=== PATIENT | male | born 1950 | race Caucasian/White ===

== ENCOUNTER → 2018-01-09 07:55 | Outpatient (CLI) | payer MEDICARE, OTHER, SELFPAY ==
[2018-01-09 08:55] LABS: Hemoglobin A1C% w Est Avg Glu 6.2 % (4.0-6.0)
[2018-01-09 09:08] LABS: Alanine Aminotransferase 37 IU/L (21-72); Albumin 3.8 g/dL (3.5-5.0); Albumin Globulin Ratio 1.5 (1.0-2.8); Alkaline Phosphatase 57 U/L (38-126); Aspartate Aminotransferase 23 IU/L (17-59); Bilirubin Total 0.4 mg/dL (0.2-1.3); Blood Urea Nitrogen 45 mg/dL (9-20); Calcium 9.6 mg/dL (8.4-10.2); Carbon Dioxide 26 mmol/L (22-32); Chloride 109 mmol/L (98-107); Cholesterol 125 mg/dL (140-199); Estimated Glomerular Filt Rate 46.8 mL/min (>60); Globulin 2.6 g/dL (1.7-4.1); Glucose 96 mg/dL (80-110); HDL Cholesterol 49 mg/dL (40-60); HEMOLYSIS < 15 (0-50); LDL Cholesterol Calculated 60 mg/dL (<100); Sodium 145 mmol/L (137-145); Total Protein 6.4 g/dL (6.3-8.2); Triglycerides 82 mg/dL (35-150)
[2018-01-09 09:10] LABS: Potassium 5.6 mmol/L (3.4-5.1)
== END ==
PROVIDERS: Visit Provider Family Medicine
DX: E11.59 Type 2 diabetes mellitus with other circulatory complications (principal); I10 Essential (primary) hypertension; Z79.4 Long term (current) use of insulin
CPT/HCPCS: 36415; 80053; 80061; 83036

== ENCOUNTER → 2018-01-29 07:38 | Outpatient (CLI) | payer MEDICARE, OTHER, SELFPAY ==
[2018-01-29 08:51] LABS: BUN Creatinine Ratio 24.1 (6-22); Blood Urea Nitrogen 41 mg/dL (9-20); Calcium 9.2 mg/dL (8.4-10.2); Carbon Dioxide 25 mmol/L (22-32); Chloride 110 mmol/L (98-107); Estimated Glomerular Filt Rate 40.5 mL/min (>60); Glucose 111 mg/dL (80-110); HEMOLYSIS < 15 (0-50); Potassium 4.7 mmol/L (3.4-5.1); Sodium 145 mmol/L (137-145)
[2018-01-29 09:11] LABS: Microalbumi Creatinin Ratio Ur 241.1 ug/mg CR (<30); Microalbumin Urine Random 25.8 mg/dL (0-1.6)
== END ==
PROVIDERS: PCP Family Medicine; Visit Provider Family Medicine
DX: E11.59 Type 2 diabetes mellitus with other circulatory complications (principal); Z79.4 Long term (current) use of insulin
CPT/HCPCS: 80048; 82043; 82570

== ENCOUNTER → 2018-03-27 07:21 | Outpatient (CLI) | payer MEDICARE, OTHER, SELFPAY ==
[2018-03-27 08:23] LABS: Hematocrit 36.5 % (41-53); Hemoglobin 12.1 g/dL (13.5-17.5); Mean Corpuscular HGB Conc 33.2 % (30-36); Mean Corpuscular Hemoglobin 30.5 PG (26-34); Mean Corpuscular Volume 91.8 fL (80-100); Platelet Count 174 X10^3/uL (150-400); Red Blood Cell Count 3.98 X10^6/uL (4.5-5.9); White Blood Cell Count 6.8 X10^3/uL (4.5-11.0)
== END ==
PROVIDERS: PCP Family Medicine; Visit Provider Student in an Organized Health Care Education/Training Program
DX: D70.9 Neutropenia, unspecified (principal); D63.1 Anemia in chronic kidney disease
CPT/HCPCS: 36415; 85027

== ENCOUNTER → 2018-04-19 10:32 | Outpatient (CLI) | payer MEDICARE, OTHER, SELFPAY ==
--- NOTE | 2018-04-19 | DI.US.S_ITS ---
PROCEDURE: US RENAL COMPLETE INDICATIONS: CHRONIC KIDNEY DISEASE TECHNIQUE: Real-time scanning was performed of the kidneys and bladder, with image documentation. COMPARISON: [facility], CT, ABDOMEN/PELVIS WITH CONTRAST, 03/18/2017, 9:10. FINDINGS: Kidneys: Kidneys are normal in size. Right kidney measures 13.5 cm long; left kidney measures 13.6 cm long. Right renal cortical thickness is 0.8 cm; left renal cortical thickness is 1.1 cm. Renal cortical echotexture is normal. No hydronephrosis or shadowing nephrolithiasis. No suspicious solid mass lesions. A simple appearing cyst measuring 10 mm is evident involving the mid right kidney. Along the superior to mid aspect of the left kidney, there is an exophytic hypoechoic structure identified that does not demonstrate increased vascularity that measures 2.3 x 2.8 x 2.9 cm. This was not evident on the previous CT from 03/18/17. Bladder: Pre-void bladder volume is 121 mL. Post-void residual is 64 mL. Pre-void images demonstrate no intraluminal masses or stones. Miscellaneous: No free pelvic fluid. IMPRESSION: 1. Mild bilateral cortical thinning. No hydronephrosis. 2. Hypoechoic structure along the lateral margin of the mid to superior left kidney is not adequately characterized and may represent perirenal fat. However, a dedicated CT urogram is recommended. Dictated by: Tang Pa M.D. on 04/19/2018 at 11:59 Approved by: Tang Pa M.D. on 04/19/2018 at 12:02
== END ==
PROVIDERS: PCP Family Medicine; Visit Provider Student in an Organized Health Care Education/Training Program
DX: N18.9 Chronic kidney disease, unspecified (principal); N28.1 Cyst of kidney, acquired
CPT/HCPCS: 76770

== ENCOUNTER → 2018-05-06 08:33 | Outpatient (CLI) | payer MEDICARE, OTHER, SELFPAY ==
[2018-05-06 08:49] LABS: Bacteria Urine None Seen; WBC Urine None Seen (0-5/HPF)
[2018-05-06 10:41] LABS: BUN Creatinine Ratio 27.7 (6-22); Blood Urea Nitrogen 36 mg/dL (9-20); Calcium 8.8 mg/dL (8.4-10.2); Carbon Dioxide 24 mmol/L (22-32); Chloride 106 mmol/L (98-107); Estimated Glomerular Filt Rate 55.2 mL/min (>60); Glucose 90 mg/dL (80-110); HEMOLYSIS < 15 (0-50); Phosphorous 3.7 mg/dL (2.3-3.7); Potassium 4.9 mmol/L (3.4-5.1); Sodium 138 mmol/L (137-145)
[2018-05-06 10:48] LABS: Appearance Urine UA CLEAR; Bilirubin Urine UA NEGATIVE (NEGATIVE); Color Urine UA YELLOW; Glucose Urine UA NEGATIVE (Negative); Ketones Urine UA NEGATIVE (NEGATIVE); Leukocyte Esterase Urine UA NEGATIVE (NEGATIVE); Nitrite Urine UA NEGATIVE (Negative); Occult Blood Urine UA 1+ (Negative); Protein Urine UA 1+ (Negative); Urobilinogen Urine UA 0.2 E.U./dL (0.2)
[2018-05-06 10:55] LABS: HEMOLYSIS < 15 (0-50); Iron 94 ug/dL (49-181)
[2018-05-06 11:01] LABS: Creatinine Urine Random 74.1 mg/dL; Protein (Total) Urine Random 67 mg/dL (0-12)
[2018-05-06 11:03] LABS: RBC Urine 1-5/HPF (0-5/HPF)
[2018-05-06 11:06] LABS: Percent Iron Saturation 35 % (20-50); Total Iron Binding Capacity 271 ug/dL (261-462); Transferrin 202 mg/dL (206-381)
[2018-05-06 11:13] LABS: Ferritin 96.3 ng/mL (17.9-464)
[2018-05-13 17:27] LABS: Parathyroid Hormone Int 80 pg/mL (14-64)
== END ==
PROVIDERS: PCP Family Medicine; Visit Provider Student in an Organized Health Care Education/Training Program
DX: N05.9 Unspecified nephritic syndrome with unspecified morphologic changes (principal); D50.0 Iron deficiency anemia secondary to blood loss (chronic); E83.30 Disorder of phosphorus metabolism, unspecified; N25.81 Secondary hyperparathyroidism of renal origin; B34.9 Viral infection, unspecified; R80.9 Proteinuria, unspecified; N30.00 Acute cystitis without hematuria
CPT/HCPCS: 36415; 80048; 81001; 82570; 82728; 83540; 83550; 83970; 84100; 84156; 87086

== ENCOUNTER → 2018-06-21 15:10 | Outpatient (CLI) | payer MEDICARE, OTHER, SELFPAY ==
[2018-06-21 16:17] LABS: BUN Creatinine Ratio 17.6 (6-22); Blood Urea Nitrogen 30 mg/dL (9-20); Calcium 8.3 mg/dL (8.4-10.2); Carbon Dioxide 23 mmol/L (22-32); Chloride 99 mmol/L (98-107); Estimated Glomerular Filt Rate 40.5 mL/min (>60); Glucose 196 mg/dL (80-110); HEMOLYSIS < 15 (0-50); Potassium 4.6 mmol/L (3.4-5.1); Sodium 135 mmol/L (137-145)
[2018-06-21 16:35] LABS: Creatinine Urine Random 212.4 mg/dL
[2018-06-21 16:38] LABS: Protein (Total) Urine Random 305 mg/dL (0-12); Protein Creatinine Ratio Urine 1.43 GRAM/24H
== END ==
PROVIDERS: PCP Family Medicine; Visit Provider Student in an Organized Health Care Education/Training Program
DX: N05.9 Unspecified nephritic syndrome with unspecified morphologic changes (principal); R80.9 Proteinuria, unspecified
CPT/HCPCS: 36415; 80048; 82570; 84156

== ENCOUNTER → 2018-08-08 10:02 | Outpatient (CLI) | payer MEDICARE, OTHER, SELFPAY ==
[2018-08-08 12:03] LABS: BUN Creatinine Ratio 29.4 (6-22); Blood Urea Nitrogen 47 mg/dL (9-20); Calcium 8.9 mg/dL (8.4-10.2); Carbon Dioxide 23 mmol/L (22-32); Chloride 107 mmol/L (98-107); Estimated Glomerular Filt Rate 43.5 mL/min (>60); Glucose 89 mg/dL (80-110); HEMOLYSIS < 15 (0-50); Sodium 139 mmol/L (137-145)
[2018-08-08 12:08] LABS: Potassium 5.4 mmol/L (3.4-5.1)
[2018-08-08 16:28] LABS: Creatinine Urine Random 89.3 mg/dL; Protein (Total) Urine Random 53 mg/dL (0-12); Protein Creatinine Ratio Urine 0.59 GRAM/24H
[2018-08-10 15:14] LABS: Parathyroid Hormone Int 67 pg/mL (14-64)
== END ==
PROVIDERS: PCP Family Medicine; Visit Provider Student in an Organized Health Care Education/Training Program
DX: N05.9 Unspecified nephritic syndrome with unspecified morphologic changes (principal); N25.81 Secondary hyperparathyroidism of renal origin; R80.9 Proteinuria, unspecified
CPT/HCPCS: 36415; 80048; 82570; 83970; 84156

== ENCOUNTER → 2018-08-20 10:33 | Outpatient (CLI) | payer MEDICARE, OTHER, SELFPAY ==
[2018-08-20 11:25] LABS: HEMOLYSIS < 15 (0-50)
[2018-08-20 11:32] LABS: Potassium 5.6 mmol/L (3.4-5.1)
== END ==
PROVIDERS: Family Provider Family Medicine; PCP Family Medicine; Visit Provider Student in an Organized Health Care Education/Training Program
DX: E87.5 Hyperkalemia (principal)
CPT/HCPCS: 36415; 84132

== ENCOUNTER → 2018-08-27 17:08 | Outpatient (CLI) | payer MEDICARE, OTHER, SELFPAY ==
[2018-08-27 19:03] LABS: HEMOLYSIS < 15 (0-50); Potassium 5.2 mmol/L (3.4-5.1)
== END ==
PROVIDERS: Family Provider Family Medicine; PCP Family Medicine; Visit Provider Student in an Organized Health Care Education/Training Program
DX: E87.5 Hyperkalemia (principal)
CPT/HCPCS: 36415; 84132

== ENCOUNTER → 2018-10-11 09:17 | Outpatient (CLI) | payer MEDICARE, OTHER, SELFPAY ==
[2018-10-11 10:19] LABS: Add Manual Diff / Slide Review NO; Basophils Absolute Auto 100 /uL (0-100); Basophils Percent Auto 1.2 % (0-2); Eosinophils Absolute Auto 200 /uL (0-450); Eosinophils Percent Auto 3.4 % (2-4); Hematocrit 36.8 % (41-53); Hemoglobin 12.3 g/dL (13.5-17.5); Lymphocytes Absolute Auto 1400 /uL (1100-4500); Lymphocytes Percent Auto 19.4 % (25-40); Mean Corpuscular HGB Conc 33.3 % (30-36); Mean Corpuscular Hemoglobin 30.6 PG (26-34); Mean Corpuscular Volume 91.6 fL (80-100); Monocytes Absolute Auto 600 /uL (0-900); Monocytes Percent Auto 8.6 % (3-14); Neutrophils Absolute Auto 4800 /uL (1500-7000); Neutrophils Percent Auto 67.4 % (50-75); Platelet Count 186 X10^3/uL (150-400); Red Blood Cell Count 4.02 X10^6/uL (4.5-5.9); Red Cell Distribution Width 13.4 % (11.6-14.8); White Blood Cell Count 7.1 X10^3/uL (4.5-11.0)
[2018-10-11 10:48] LABS: Albumin 3.6 g/dL (3.5-5.0); BUN Creatinine Ratio 28.8 (6-22); Blood Urea Nitrogen 46 mg/dL (9-20); Calcium 9.2 mg/dL (8.4-10.2); Carbon Dioxide 26 mmol/L (22-32); Chloride 102 mmol/L (98-107); Estimated Glomerular Filt Rate 43.5 mL/min (>60); Glucose 154 mg/dL (80-110); HEMOLYSIS 20 (0-50); Phosphorous 4.8 mg/dL (2.3-3.7); Potassium 5.2 mmol/L (3.4-5.1); Sodium 136 mmol/L (137-145)
[2018-10-11 11:37] LABS: Creatinine Urine Random 117.9 mg/dL; Protein (Total) Urine Random 156 mg/dL (0-12)
== END ==
PROVIDERS: Family Provider Family Medicine; PCP Family Medicine; Visit Provider Student in an Organized Health Care Education/Training Program
DX: N18.3 Chronic kidney disease, stage 3 (moderate) (principal); D63.1 Anemia in chronic kidney disease; R80.9 Proteinuria, unspecified
CPT/HCPCS: 36415; 80069; 82570; 84156; 85025

== ENCOUNTER → 2018-11-12 13:20 | Outpatient (CLI) | payer MEDICARE, OTHER, SELFPAY ==
[2018-11-12 14:29] LABS: BUN Creatinine Ratio 21.1 (6-22); Blood Urea Nitrogen 40 mg/dL (9-20); Calcium 9.1 mg/dL (8.4-10.2); Carbon Dioxide 28 mmol/L (22-32); Chloride 99 mmol/L (98-107); Estimated Glomerular Filt Rate 35.5 mL/min (>60); Glucose 91 mg/dL (80-110); HEMOLYSIS < 15 (0-50); Potassium 4.6 mmol/L (3.4-5.1); Sodium 137 mmol/L (137-145)
[2018-11-12 15:01] LABS: Creatinine Urine Random 100.9 mg/dL; Protein (Total) Urine Random 122 mg/dL (0-12)
== END ==
PROVIDERS: Family Provider Family Medicine; PCP Family Medicine; Visit Provider Student in an Organized Health Care Education/Training Program
DX: N05.9 Unspecified nephritic syndrome with unspecified morphologic changes (principal); R80.9 Proteinuria, unspecified
CPT/HCPCS: 36415; 80048; 82570; 84156

== ENCOUNTER → 2019-01-24 09:25 | Outpatient (CLI) | payer MEDICARE, OTHER, SELFPAY ==
[2019-01-24 10:31] LABS: BUN Creatinine Ratio 23.2 (6-22); Blood Urea Nitrogen 44 mg/dL (9-20); Calcium 8.9 mg/dL (8.4-10.2); Carbon Dioxide 29 mmol/L (22-32); Chloride 102 mmol/L (98-107); Estimated Glomerular Filt Rate 35.5 mL/min (>60); Glucose 141 mg/dL (80-110); HEMOLYSIS < 15 (0-50); Potassium 4.5 mmol/L (3.4-5.1); Sodium 137 mmol/L (137-145)
[2019-01-24 12:08] LABS: Creatinine Urine Random 122.2 mg/dL
[2019-01-24 12:17] LABS: Protein (Total) Urine Random 342 mg/dL (0-12); Protein Creatinine Ratio Urine 2.79 GRAM/24H
[2019-01-29 07:38] LABS: Parathyroid Hormone Int 42 pg/mL (14-64)
== END ==
PROVIDERS: Family Provider Family Medicine; PCP Family Medicine; Visit Provider Student in an Organized Health Care Education/Training Program
DX: N05.9 Unspecified nephritic syndrome with unspecified morphologic changes (principal); N25.81 Secondary hyperparathyroidism of renal origin; R80.9 Proteinuria, unspecified
CPT/HCPCS: 36415; 80048; 82570; 83970; 84156

== ENCOUNTER 2019-03-17 12:25 | Emergency (ER) | payer MEDICARE, OTHER, SELFPAY ==
[2019-03-17 12:40] VITALS: BP 140/82; PULSE 84; RESP 13; TEMP 36.4; O2SAT 99
[2019-03-17 16:46] VITALS: BP 153/77; PULSE 81; RESP 19; O2SAT 99
--- NOTE | 2019-03-17 16:55 | ED_ITS ---
HPI - General Adult General Chief complaint: Diabetic Problem Stated complaint: Sick all week hands and feet going dumb, Diabetic Time Seen by Provider: 03/17/19 16:55 Source: patient Mode of arrival: Ambulatory Limitations: no limitations History of Present Illness HPI narrative: This a 68-year-old male comes emergency department with complaint of abdominal pain that started on Sunday patient states he has also had vomiting since Sunday. He states he has had 2 episodes yesterday. He states he has not been eating any food. Patient states that the last couple episodes have just been clear liquids. Patient has not had a bowel movement since Sunday. Patient states that he has been passing gas regularly. He denies any back or flank pain. patient has not had any fevers. No chills. Denies any chest pain or shortness of breath. Related Data Home Medications Medication Instructions Recorded Confirmed aspirin #0 12/19/16 01/21/18 multivitamin [Multiple Vitamins] 1 tab PO QDAY #0 01/22/17 01/21/18 Previous Rx's Medication Instructions Recorded lisinopril 10 mg tablet 20 mg PO QDAY #180 tab 01/01/18 insulin glargine 100 unit/mL (3 45 unit SUBCUT QPM #10 ml 03/27/18 mL) subcutaneous pen atorvastatin 40 mg tablet 40 mg PO BEDTIME #90 tab 02/25/19 ondansetron HCl [Zofran] 4 mg PO Q6H PRN #5 tab 03/17/19 Allergies Allergy/AdvReac Type Severity Reaction Status Date / Time No Known Drug Allergies Allergy Verified 01/21/18 15:13 Review of Systems Review of Systems ROS Unobtainable: All systems reviewed & are unremarkable except as noted in HPI and below Patient History Medical History Diabetes mellitus (Chronic) Diabetic peripheral neuropathy (Chronic) Hypertension (Chronic) Surgical History History of cataract removal with insertion of prosthetic lens (Resolved ~2017) Social History marital status: number of children: 2 lives independently: Yes education level: college occupational status: other (retired) Smoking Status: Never smoker alcohol intake: never substance use type: does not use Substance Use Type: does not use Exam Narrative Exam Narrative: GENERAL: Alert and oriented x three, well-nourished, well- appearing male in mild distress. HEENT: Head normocephalic, atraumatic, EOMI, pupils reactive, face symmetric, moist mucous membranes NECK: Supple, full range of motion CARDIOVASCULAR: Regular rate and rhythm without murmurs, rubs or gallops. RESPIRATORY: Breath sounds equal bilaterally, no wheezes rales or rhonchi. ABDOMEN: Soft, nontender. Nondistended. Normoactive bowel sounds all 4 quadrants. No guarding or rebound, rigidity, no mass : No CVA tenderness EXTREMITIES: Normal range of motion, no clubbing or edema. Neurovascularly in tact NEUROLOGICAL: Cranial nerves II through XII grossly intact. Moving all extremities SKIN: Warm, dry, no petechiae, no rashes or lesions. Initial Vital Signs Initial Vital Signs: Vital Signs Temperature 97.6 F 03/17/19 12:40 Pulse Rate 84 03/17/19 12:40 Respiratory Rate 13 03/17/19 12:40 Blood Pressure 140/82 03/17/19 12:40 Pulse Oximetry 99 03/17/19 12:40 Course Orders Ordered: ED Orders 03/17/19 15:55 Complete Blood Count AUTO DIFF Stat Comprehensive Metabolic Panel Stat Lipase Stat 03/17/19 17:05 CT abdomen pelvis w con Stat 03/17/19 19:10 Urine Microscopic Stat Discontinued Medications Sodium Chloride (Normal Saline 0.9%) 1,000 mls @ 1,000 mls/hr IV BOLUS ONE Stop: 03/17/19 18:04 Last Infusion: 03/17/19 19:44 Dose: 0 mls/hr Documented by: JEAN CARLOS Admin: 03/17/19 17:13 Dose: 1,000 mls/hr Documented by: JEAN CARLOS Ondansetron HCl (Zofran) 4 mg IV NOW ONE Stop: 03/17/19 17:06 Last Admin: 03/17/19 17:13 Dose: 4 mg Documented by: JEAN CARLOS Vital Signs Vital signs: Vital Signs - 8 hr 03/17/19 12:40 03/17/19 16:46 03/17/19 19:43 Temperature 97.6 F Pulse Rate 84 81 71 Respiratory Rate 13 19 14 Blood Pressure 140/82 Blood Pressure [Right Arm] 153/77 H 165/85 H Pulse Oximetry 99 99 99 Medical Decision Making Lab Data Lab results reviewed: Yes I reviewed the patient's lab results. Result diagrams: 03/17/19 15:55 03/17/19 15:55 Labs: Lab Results 03/17/19 03/17/19 03/17/19 Range/Units 15:55 15:55 19:10 WBC 8.7 (4.5-11.0) X10^3/uL RBC 4.20 L (4.5-5.9) X10^6/uL Hgb 13.0 L (13.5-17.5) g/dL Hct 38.2 L (41-53) % MCV 91.1 (80-100) fL MCH 30.9 (26-34) PG MCHC 34.0 (30-36) % RDW 13.3 (11.6-14.8) % Plt Count 213 (150-400) X10^3/uL Neut % (Auto) 79.4 H (50-75) % Lymph % (Auto) 13.6 L (25-40) % [place] % (Auto) 6.0 (3-14) % Eos % (Auto) 0.3 L (2-4) % Baso % (Auto) 0.7 (0-2) % Neut # (Auto) 6900 (4496-4890) /uL Lymph # (Auto) 1200 (8130-0376) /uL [place] # (Auto) 500 (0-900) /uL Eos # (Auto) 0 (0-450) /uL Baso # (Auto) 100 (0-100) /uL Sodium 135 L (137-145) mmol/L Potassium 4.7 (3.4-5.1) mmol/L Chloride 101 (98-107) mmol/L Carbon Dioxide 26 (22-32) mmol/L BUN 37 H (9-20) mg/dL Creatinine 2.10 H (0.66-1.25) mg/dL Estimated GFR 31.7 L (>60) mL/min BUN/Creatinine Ratio 17.6 (6-22) Glucose 114 H (80-110) mg/dL Calcium 9.0 (8.4-10.2) mg/dL Total Bilirubin 0.5 (0.2-1.3) mg/dL AST 37 (17-59) IU/L ALT 25 (<50) IU/L Alkaline Phosphatase 59 (38-126) U/L Total Protein 7.0 (6.3-8.2) g/dL Albumin 4.0 (3.5-5.0) g/dL Globulin 3.0 (1.7-4.1) g/dL Albumin/Globulin Ratio 1.3 (1.0-2.8) Lipase 35 (23-300) U/L Urine RBC 0-1/hpf (0-5/HPF) Urine WBC 0-1/hpf (0-5/HPF) Ur Squamous Epith Cells 0-1 /hpf (0-5/HPF) Urine Bacteria None seen (None) Ur Culture Indicated? Cult not indicated Micro UA Comment Microscopic normal Urine Dip Bedside Urine Glucose Negative Bedside Urine Bilirubin - Negative Bedside Urine Ketone - Negative Urine Specific [place] 1.015 Bedside Urine Occult Blood +/- Bedside Urine pH 6.0 Bedside Urine Protein ++ 100 Bedside Urine Urobilinogen - Negative Bedside Urine Nitrite - Negative Bedside Urine Leukocytes - Negative Esterase Point of care testing: Urine Dip Bedside Urine Glucose Negative Bedside Urine Bilirubin - Negative Bedside Urine Ketone - Negative Urine Specific [place] 1.015 Bedside Urine Occult Blood +/- Bedside Urine pH 6.0 Bedside Urine Protein ++ 100 Bedside Urine Urobilinogen - Negative Bedside Urine Nitrite - Negative Bedside Urine Leukocytes - Negative Esterase Imaging Data CT scan - abdomen: Radiologist's impression: [place] [address] CT Scan Report Signed Patient: Kevin Quesada FMR#: [id number] : [id number]:[id number] Age/Sex: 68 / MDate of Service: 03/17/19 Loc: ED Accession Number: [id number] Procedure: CT abdomen pelvis w con Ordering Provider: Kathryn Ryan D.O. PROCEDURE: CT ABDOMEN PELVIS W CON INDICATIONS: vomiting since sunday, no BM +flatus, DM TECHNIQUE: After the administration of intravenous contrast, 5 mm thick sections acquired from the diaphragm to the symphysis. 5 mm coronal and sagittal reformats were acquired. For radiation dose reduction, the following was used: automated exposure control, adjustment of mA and/or kV according to patient size. COMPARISON: [facility], CT, ABDOMEN/PELVIS WITH CONTRAST, 03/18/2017, 9:10. FINDINGS: Image quality: Excellent. ABDOMEN: Lung bases: Lung bases are clear. Heart size is normal. Solid organs: Liver is normal in size and enhancement. Gallbladder is mildly distended but no calcifications are visible. Biliary system is non dilated. Pancreas enhances normally. No adrenal nodules. The spleen is normal size. There are bandlike areas of hypodensity in the subcapsular posterior lateral spleen, not present previously. Kidneys demonstrate normal size and enhancement, without hydronephrosis. Nonobstructing 2 mm calcification in the lower pole of left kidney, 2 mm calcification in the right upper pole and punctate stone in the right lower pole. Peritoneum and bowel: Bowel loops demonstrate normal wall thickness and caliber. The appendix is not seen, likely surgically absent. No significant diverticular disease. No free fluid or air. Nodes and vessels: No retroperitoneal or mesenteric adenopathy by size criteria. Aorta and inferior vena cava are normal in size. Miscellaneous: No ventral hernias. PELVIS: Genitourinary: Bladder wall thickness is normal. Normal size prostate gland. Miscellaneous: No inguinal hernias or adenopathy. Bones: No suspicious bony lesions. No vertebral body compression fractures. IMPRESSION: 1. Subcapsular posterolateral splenic hypodensity, possible infarct, less likely contusion or laceration, although correlation with history is recommended. Infection is felt unlikely. 2. Nonobstructing bilateral nephrolithiasis. No evidence of obstructive uropathy. 3. No significant diverticulosis or acute diverticulitis. Dictated by: Tonia Alexander M.D. on 03/17/2019 at 18:09 Approved by: Tonia Alexander M.D. on 03/17/2019 at 18:17 [facility] Narrative Medical decision making narrative: Spoke with Dr. Grayson is coming for patient's primary care physician. 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 Patient has been having some emesis in not been keeping fluids down regularly throughout the weekend although he states he is keeping some fluids down so this could be a cause as well. The rest of his lab work appears stable, he does not have any major changes in abdominal abnormalities on his lab work. He is anemic but appears baseline with no elevated white count. Feels much better after fluids and Zofran. His CT shows a possible lesion in the spleen with no other acute findings appreciated. Patient is nontender on exam, he symptomatically does not seem consistent with his CT findings these were discussed with Dr. Grayson. Patient would like to return home today, plan to finish fluids give him a short course of Zofran and have him follow up in the next 24 hours with primary care which Dr. Grayson will help arrange. Patient is comfortable with this plan. He is also comfortable returning if he is having any worsening symptoms if he continues to have any vomiting or any other new changes. Discharge Plan Departure Patient Disposition: Home Clinical Impression: Abdominal pain, Chronic kidney disease (CKD) Activity Restrictions/Additional Instructions: Follow-up with Dr. Raymundo in the next 24-48 hours for recheck. You're imaging today shows a change to the the spleen your lab work does not reflect any acute changes on your abdominal labs. Your decreased at 2.1 with a GFR 31 today. This is slightly decreased from your renal function in January. Continue Zofran 1 tablet every 6 hours needed for nausea. Make sure you continue to hydrate regularly. If you have fevers greater than 100.4 F, new or increasing abdominal pain, persistent vomiting, black or bloody stools, flank pain, new left-sided abdominal pain, lightheadedness passing out or any other new changes return to the emergency department Prescriptions: New ondansetron HCl [Zofran] 4 mg tablet 4 mg PO Q6H PRN (Reason: nausea and vomiting) Qty: 5 RF: 0 No Action aspirin 81 MG tablet,delayed release (DR/EC) Qty: 0 RF: 0 multivitamin [Multiple Vitamins] 1 EACH tablet 1 tab PO QDAY Qty: 0 RF: 0 lisinopril 10 mg tablet 20 mg PO QDAY Qty: 180 RF: 0 insulin glargine [Lantus Solostar U-100 Insulin] 100 unit/mL (3 mL) insulin pen 45 unit SUBCUT QPM Qty: 10 RF: 10 atorvastatin 40 mg tablet 40 mg PO BEDTIME Qty: 90 RF: 0 Referrals: Robyn Raymundo DO [Primary Care Provider] -
--- NOTE | 2019-03-17 17:05 | DI.CT.S_ITS ---
PROCEDURE: CT ABDOMEN PELVIS W CON INDICATIONS: vomiting since sunday, no BM +flatus, DM TECHNIQUE: After the administration of intravenous contrast, 5 mm thick sections acquired from the diaphragm to the symphysis. 5 mm coronal and sagittal reformats were acquired. For radiation dose reduction, the following was used: automated exposure control, adjustment of mA and/or kV according to patient size. COMPARISON: [facility], CT, ABDOMEN/PELVIS WITH CONTRAST, 03/18/2017, 9:10. FINDINGS: Image quality: Excellent. ABDOMEN: Lung bases: Lung bases are clear. Heart size is normal. Solid organs: Liver is normal in size and enhancement. Gallbladder is mildly distended but no calcifications are visible. Biliary system is non dilated. Pancreas enhances normally. No adrenal nodules. The spleen is normal size. There are bandlike areas of hypodensity in the subcapsular posterior lateral spleen, not present previously. Kidneys demonstrate normal size and enhancement, without hydronephrosis. Nonobstructing 2 mm calcification in the lower pole of left kidney, 2 mm calcification in the right upper pole and punctate stone in the right lower pole. Peritoneum and bowel: Bowel loops demonstrate normal wall thickness and caliber. The appendix is not seen, likely surgically absent. No significant diverticular disease. No free fluid or air. Nodes and vessels: No retroperitoneal or mesenteric adenopathy by size criteria. Aorta and inferior vena cava are normal in size. Miscellaneous: No ventral hernias. PELVIS: Genitourinary: Bladder wall thickness is normal. Normal size prostate gland. Miscellaneous: No inguinal hernias or adenopathy. Bones: No suspicious bony lesions. No vertebral body compression fractures. IMPRESSION: 1. Subcapsular posterolateral splenic hypodensity, possible infarct, less likely contusion or laceration, although correlation with history is recommended. Infection is felt unlikely. 2. Nonobstructing bilateral nephrolithiasis. No evidence of obstructive uropathy. 3. No significant diverticulosis or acute diverticulitis. Dictated by: Tonia Alexander M.D. on 03/17/2019 at 18:09 Approved by: Tonia Alexander M.D. on 03/17/2019 at 18:17
[2019-03-17 17:07] LABS: Add Manual Diff / Slide Review NO; Basophils Absolute Auto 100 /uL (0-100); Basophils Percent Auto 0.7 % (0-2); Eosinophils Absolute Auto 0 /uL (0-450); Eosinophils Percent Auto 0.3 % (2-4); Hematocrit 38.2 % (41-53); Lymphocytes Absolute Auto 1200 /uL (1100-4500); Lymphocytes Percent Auto 13.6 % (25-40); Mean Corpuscular Hemoglobin 30.9 PG (26-34); Mean Corpuscular Volume 91.1 fL (80-100); Monocytes Absolute Auto 500 /uL (0-900); Neutrophils Absolute Auto 6900 /uL (1500-7000); Neutrophils Percent Auto 79.4 % (50-75); Platelet Count 213 X10^3/uL (150-400); Red Cell Distribution Width 13.3 % (11.6-14.8); White Blood Cell Count 8.7 X10^3/uL (4.5-11.0)
[2019-03-17 17:13] LABS: Alanine Aminotransferase 25 IU/L (<50); Albumin Globulin Ratio 1.3 (1.0-2.8); Alkaline Phosphatase 59 U/L (38-126); Aspartate Aminotransferase 37 IU/L (17-59); BUN Creatinine Ratio 17.6 (6-22); Bilirubin Total 0.5 mg/dL (0.2-1.3); Blood Urea Nitrogen 37 mg/dL (9-20); Carbon Dioxide 26 mmol/L (22-32); Chloride 101 mmol/L (98-107); Estimated Glomerular Filt Rate 31.7 mL/min (>60); Glucose 114 mg/dL (80-110); HEMOLYSIS < 15 (0-50); Lipase 35 U/L (23-300); Potassium 4.7 mmol/L (3.4-5.1); Sodium 135 mmol/L (137-145)
[2019-03-17] MEDS: ONDANSETRON 4 MG/2 ML INJ IV (17:13)
[2019-03-17] MEDS: SODIUM CHLORIDE 0.9% 1,000 ML 1000 ML IV (17:13)
[2019-03-17 19:34] LABS: Bacteria Urine None Seen
[2019-03-17 19:40] LABS: Culture Indicated Urine Cult Not Indicated; RBC Urine 0-1/HPF (0-5/HPF); Squamous Epithelial Cell Urine 0-1 /HPF (0-5/HPF); Urine Comments Microscopic Normal; WBC Urine 0-1/HPF (0-5/HPF)
[2019-03-17 19:43] VITALS: BP 165/85; PULSE 71; RESP 14; O2SAT 99
[2019-03-17 19:59] VITALS: BP 124/78; PULSE 85; RESP 14; O2SAT 97
[2019-03-18 15:15] LABS: Hemoglobin A1C% w Est Avg Glu 6.3 % (4.0-6.0)
== END 2019-03-17 19:59 | disposition home or self-care (01) ==
PROVIDERS: Emergency Provider Emergency Medicine; Family Provider Family Medicine; PCP Family Medicine
DX: R10.9 Unspecified abdominal pain (principal); E11.22 Type 2 diabetes mellitus with diabetic chronic kidney disease; I12.9 Hypertensive chronic kidney disease with stage 1 through stage 4 chronic kidney disease, or unspecified chronic kidney disease; N18.9 Chronic kidney disease, unspecified; Z79.4 Long term (current) use of insulin; R11.10 Vomiting, unspecified
CPT/HCPCS: 36415; 74177; 80053; 81003; 81015; 83036; 83690; 85025; 96361; 96374; 99283; 99284; J2405

== ENCOUNTER → 2019-04-04 09:37 | Outpatient (CLI) | payer MEDICARE, OTHER, SELFPAY ==
[2019-04-04 10:35] LABS: BUN Creatinine Ratio 23.3 (6-22); Blood Urea Nitrogen 42 mg/dL (9-20); Calcium 9.2 mg/dL (8.4-10.2); Carbon Dioxide 26 mmol/L (22-32); Chloride 105 mmol/L (98-107); Estimated Glomerular Filt Rate 37.8 mL/min (>60); Glucose 111 mg/dL (80-110); HEMOLYSIS < 15 (0-50); Potassium 4.7 mmol/L (3.4-5.1); Sodium 138 mmol/L (137-145)
[2019-04-04 10:47] LABS: Creatinine Urine Random 84.2 mg/dL
[2019-04-04 10:54] LABS: Protein (Total) Urine Random 261 mg/dL (0-12); Protein Creatinine Ratio Urine 3.09 GRAM/24H
== END ==
PROVIDERS: PCP Family Medicine; Visit Provider Student in an Organized Health Care Education/Training Program
DX: N05.9 Unspecified nephritic syndrome with unspecified morphologic changes (principal); R80.9 Proteinuria, unspecified
CPT/HCPCS: 36415; 80048; 82570; 84156

== ENCOUNTER → 2019-04-18 10:03 | Outpatient (CLI) | payer MEDICARE, OTHER, SELFPAY ==
--- NOTE | 2019-04-18 10:06 | DI.CT.S_ITS ---
PROCEDURE: CT ABDOMEN W CON INDICATIONS: splenic hypodensity TECHNIQUE: After the administration of oral and intravenous contrast, 5 mm thick sections acquired from the diaphragms to the iliac crests. 5 mm thick coronal and sagittal reformats were acquired. For radiation dose reduction, the following was used: automated exposure control, adjustment of mA and/or kV according to patient size. COMPARISON: [facility], CT, ABDOMEN/PELVIS WITH CONTRAST, 03/18/2017, 9:10. [facility], CT, CT ABDOMEN PELVIS W CON, 03/17/2019, 17:18. FINDINGS: Image quality: Excellent. Lung bases: Lung bases are clear. Heart size is normal. Mild circumferential wall thickening of the lower esophagus. No hiatal hernia. Solid organs: Wedge-shaped subcapsular hypodensity along the posterior spleen is stable in size and morphology since the prior study. There is trace overlying fluid or edema in the fat, also stable. Liver is normal in size and enhancement. Gallbladder is distended but has an otherwise normal appearance. Biliary system is non dilated. Pancreas enhances normally. No adrenal nodules. Punctate bilateral nonobstructing intrarenal calcifications, stable size and position compared to prior. Peritoneum and bowel: Contrast enhanced bowel loops appear normal in caliber. No free fluid or air. Nodes and vessels: No retroperitoneal or mesenteric adenopathy by size criteria. Aorta and inferior vena cava are normal in size. Mild aortic calcification. Bones: No suspicious bony lesions. No vertebral body compression fractures. Miscellaneous: No ventral hernias. IMPRESSION: 1. Stable appearance of the wedge-shaped hypodensity in the posterior spleen which has a differential diagnosis of a laceration and splenic infarct. This is new since 2017. Clinical correlation is recommended. 2. Stable nonobstructing bilateral nephrolithiasis. 3. Mild distal esophageal wall thickening suggesting esophagitis. Dictated by: Tonia Alexander M.D. on 04/18/2019 at 13:39 Approved by: Tonia Alexander M.D. on 04/18/2019 at 13:50
== END ==
PROVIDERS: PCP Family Medicine; Visit Provider Family Medicine
DX: D73.9 Disease of spleen, unspecified (principal); N20.0 Calculus of kidney
CPT/HCPCS: 74160; Q9967

== ENCOUNTER 2019-04-18 19:51 | Emergency (ER) | payer MEDICARE, OTHER, SELFPAY ==
[2019-04-18 20:10] VITALS: BP 218/109; PULSE 73; RESP 18; TEMP 36.9; O2SAT 98; BMI 34.4
--- NOTE | 2019-04-18 20:22 | ED_ITS ---
HPI - General Adult General Chief complaint: Abdominal Pain Stated complaint: stomach problems Time Seen by Provider: 04/18/19 20:02 Source: patient Mode of arrival: Family Vehicle Limitations: no limitations History of Present Illness HPI narrative: 68-year-old male here for evaluation of abdominal pain, distention, nausea. He has had symptoms like this for some time now. He actually had a CT scan of his abdomen earlier today for evaluation of the symptoms ordered by his primary provider. Patient denies any urinary symptoms. No bowel changes. Nausea but no vomiting. No prior abdominal surgeries. Came into the emergency drugs he thought maybe his symptoms were worsening. Related Data Home Medications Medication Instructions Recorded Confirmed multivitamin [Multiple Vitamins] 1 tab PO QDAY #0 01/22/17 03/18/19 lisinopril 5 mg tablet mg PO 03/18/19 03/18/19 sodium polystyrene sulfonate PO 03/18/19 03/18/19 Previous Rx's Medication Instructions Recorded insulin glargine 100 unit/mL (3 45 unit SUBCUT QPM #10 ml 03/27/18 mL) subcutaneous pen atorvastatin 40 mg tablet 40 mg PO BEDTIME #90 tab 02/25/19 ondansetron HCl [Zofran] 4 mg PO Q6H PRN #5 tab 03/17/19 ondansetron 4 mg PO Q6H PRN #20 tab 04/18/19 Allergies Allergy/AdvReac Type Severity Reaction Status Date / Time No Known Drug Allergies Allergy Verified 01/21/18 15:13 Review of Systems Constitutional Constitutional: Denies fatigue and Denies fever(s) Cardiovascular Cardiovascular: Denies chest pain and Denies dyspnea Respiratory Respiratory: Denies dyspnea Gastrointestinal Gastrointestinal: Reports abdominal pain, Denies change in stool character, Reports nausea and Denies vomiting Genitourinary Genitourinary: Denies dysuria Musculoskeletal Musculoskeletal: Denies myalgias and Denies arthralgias Integumentary/Breasts Skin/Breast: Denies lesions and Denies rash Neurologic Neurologic: Denies behavioral changes Psychiatric Psychiatric: Denies behavioral changes Endocrine Endocrine: Denies fatigue Hematologic/Lymphatic Hematologic/Lymphatic: Denies easy bleeding and Denies easy bruising Allergic/Immunologic Allergic/Immunologic: Denies urticaria Patient History Medical History Diabetes mellitus (Chronic) Diabetic peripheral neuropathy (Chronic) Hypertension (Chronic) Social History marital status: number of children: 2 lives independently: Yes education level: college occupational status: other (retired) Smoking Status: Never smoker alcohol intake: never substance use type: does not use Smoking Status: Never smoker Substance Use Type: does not use Exam Initial Vital Signs Initial Vital Signs: Vital Signs Temperature 98.4 F 04/18/19 20:10 Pulse Rate 73 04/18/19 20:10 Respiratory Rate 18 04/18/19 20:10 Blood Pressure 218/109 H 04/18/19 20:10 Pulse Oximetry 98 04/18/19 20:10 Const General: cooperative, comfortable and well developed Orientation: alert, awake and oriented x3 HENMT Head: normal to inspection and normocephalic Resp Effort & Inspection: normal respiratory effort Auscultation: clear to auscultation bilaterally Cardio Rate: regular rate Rhythm: regular rhythm GI Inspection: non-distended Palpation: soft, No firm, No guarding and tender Back/Spine/Pelvis Back: No CVA tenderness Skin Lesions: no lesions Rashes: no rashes Neuro General: alert, awake and oriented x3 Cognition: normal cognition Speech: speech normal Gait: normal gait Extrem General: normal to inspection and capillary refill normal Psych Appearance: grossly normal and well kempt Course Orders Ordered: ED Orders 04/18/19 20:35 Complete Blood Count AUTO DIFF Stat Comprehensive Metabolic Panel Stat Lipase Stat Discontinued Medications Sodium Chloride (Normal Saline 0.9%) 1,000 mls @ 1,000 mls/hr IV BOLUS ONE Stop: 04/18/19 21:15 Last Infusion: 04/18/19 21:42 Dose: 0 mls/hr Documented by: Admin: 04/18/19 20:45 Dose: 1,000 mls/hr Documented by: SARAH Ondansetron HCl (Zofran Odt Prepack) 1 bottle MISC SEEINSTR ONE Stop: 04/18/19 21:45 Last Admin: 04/18/19 21:53 Dose: 1 bottle Documented by: SARAH Ondansetron HCl (Zofran) 4 mg IV NOW ONE Stop: 04/18/19 21:56 Last Admin: 04/18/19 21:57 Dose: 4 mg Documented by: SARAH Vital Signs Vital signs: Vital Signs - 8 hr 04/18/19 20:10 04/18/19 20:48 04/18/19 21:22 Temperature 98.4 F Pulse Rate 73 68 68 Respiratory Rate 18 18 19 Blood Pressure 218/109 H Blood Pressure [Left Arm] 158/90 H 117/89 Pulse Oximetry 98 99 100 04/18/19 21:50 Temperature Pulse Rate 70 Respiratory Rate 17 Blood Pressure Blood Pressure [Left Arm] 180/88 H Pulse Oximetry 97 Medical Decision Making Medical Records Medical records reviewed: Yes I reviewed the patient's medical records. Lab Data Lab results reviewed: Yes I reviewed the patient's lab results. Result diagrams: 04/18/19 20:35 04/18/19 20:35 Labs: Lab Results 04/18/19 04/18/19 Range/Units 20:35 20:35 WBC 8.5 (4.5-11.0) X10^3/uL RBC 3.96 L (4.5-5.9) X10^6/uL Hgb 12.4 L (13.5-17.5) g/dL Hct 35.4 L (41-53) % MCV 89.4 (80-100) fL MCH 31.2 (26-34) PG MCHC 34.9 (30-36) % RDW 13.9 (11.6-14.8) % Plt Count 214 (150-400) X10^3/uL Neut % (Auto) 75.7 H (50-75) % Lymph % (Auto) 15.4 L (25-40) % [place] % (Auto) 7.0 (3-14) % Eos % (Auto) 1.2 L (2-4) % Baso % (Auto) 0.7 (0-2) % Neut # (Auto) 6500 (5993-3333) /uL Lymph # (Auto) 1300 (4514-1055) /uL [place] # (Auto) 600 (0-900) /uL Eos # (Auto) 100 (0-450) /uL Baso # (Auto) 100 (0-100) /uL Sodium 134 L (137-145) mmol/L Potassium 4.4 (3.4-5.1) mmol/L Chloride 101 (98-107) mmol/L Carbon Dioxide 26 (22-32) mmol/L BUN 42 H (9-20) mg/dL Creatinine 2.00 H (0.66-1.25) mg/dL Estimated GFR 33.5 L (>60) mL/min BUN/Creatinine Ratio 21.0 (6-22) Glucose 98 (80-110) mg/dL Calcium 9.3 (8.4-10.2) mg/dL Total Bilirubin 0.3 (0.2-1.3) mg/dL AST 27 (17-59) IU/L ALT 20 (<50) IU/L Alkaline Phosphatase 57 (38-126) U/L Total Protein 6.4 (6.3-8.2) g/dL Albumin 3.7 (3.5-5.0) g/dL Globulin 2.7 (1.7-4.1) g/dL Albumin/Globulin Ratio 1.4 (1.0-2.8) Lipase 33 (23-300) U/L Imaging Data CT scan - abdomen: Radiologist's impression: [place] [address] CT Scan Report Signed Patient: Kevin Quesada FMR#: [id number] : 2Acct:[id number] Age/Sex: 68 / MDate of Service: 04/18/19 Loc: CT Accession Number: [id number] Procedure: CT abdomen w con Ordering Provider: Robyn Raymundo D.O. PROCEDURE: CT ABDOMEN W CON INDICATIONS: splenic hypodensity TECHNIQUE: After the administration of oral and intravenous contrast, 5 mm thick sections acquired from the diaphragms to the iliac crests. 5 mm thick coronal and sagittal reformats were acquired. For radiation dose reduction, the following was used: automated exposure control, adjustment of mA and/or kV according to patient size. COMPARISON: [facility], CT, ABDOMEN/PELVIS WITH CONTRAST, 03/18/2017, 9:10. [facility], CT, CT ABDOMEN PELVIS W CON, 03/17/2019, 17:18. FINDINGS: Image quality: Excellent. Lung bases: Lung bases are clear. Heart size is normal. Mild circumferential wall thickening of the lower esophagus. No hiatal hernia. Solid organs: Wedge-shaped subcapsular hypodensity along the posterior spleen is stable in size and morphology since the prior study. There is trace overlying fluid or edema in the fat, also stable. Liver is normal in size and enhancement. Gallbladder is distended but has an otherwise normal appearance. Biliary system is non dilated. Pancreas enhances normally. No adrenal nodules. Punctate bilateral nonobstructing intrarenal calcifications, stable size and position compared to prior. Peritoneum and bowel: Contrast enhanced bowel loops appear normal in caliber. No free fluid or air. Nodes and vessels: No retroperitoneal or mesenteric adenopathy by size criteria. Aorta and inferior vena cava are normal in size. Mild aortic calcification. Bones: No suspicious bony lesions. No vertebral body compression fractures. Miscellaneous: No ventral hernias. IMPRESSION: 1. Stable appearance of the wedge-shaped hypodensity in the posterior spleen which has a differential diagnosis of a laceration and splenic infarct. This is new since 2017. Clinical correlation is recommended. 2. Stable nonobstructing bilateral nephrolithiasis. 3. Mild distal esophageal wall thickening suggesting esophagitis. Dictated by: Tonia Alexander M.D. on 04/18/2019 at 13:39 Approved by: Tonia Alexander M.D. on 04/18/2019 at 13:50 [facility] Narrative Medical decision making narrative: The CT scan included in this note is for reference purposes only. He was the CT scan that was ordered by his primary provider earlier today. It shows no acute pathology. Patient has a benign abdominal exam. Patient states that he has had a colonoscopy and an upper GI in the past. Informed him that he should talk with his primary provider about another referral to see GI. He has been on reflux medications in the past and he states that it does not help him. He states that Zofran has helped him in the past. Will send him home with a prescription for this. He was given return precautions and follow-up instructions. His is at bedside. Expressed understanding and agreement plan Discharge Plan Departure Patient Disposition: Home Clinical Impression: Nausea Abdominal pain Qualifiers: Abdominal location: generalized Qualified Code(s): R10.84 - Generalized abdominal pain Discharge Date/Time: 04/18/19 22:05 Instructions: DI for Abdominal Pain-Adult, DI for Nausea -- Adult Activity Restrictions/Additional Instructions: Take the nausea medication as needed. I do recommend on Sunday you talk with your primary provider about the indications for referral to see Gastroenterology . Return to the emergency department for any new or worsening symptoms Prescriptions: New ondansetron 4 mg tablet,disintegrating 4 mg PO Q6H PRN (Reason: nausea and vomiting) Qty: 20 RF: 0 No Action sodium polystyrene sulfonate Powder PO RF: 0 lisinopril 5 mg tablet PO RF: 0 multivitamin [Multiple Vitamins] 1 EACH tablet 1 tab PO QDAY Qty: 0 RF: 0 insulin glargine [Lantus Solostar U-100 Insulin] 100 unit/mL (3 mL) insulin pen 45 unit SUBCUT QPM Qty: 10 RF: 10 atorvastatin 40 mg tablet 40 mg PO BEDTIME Qty: 90 RF: 0 ondansetron HCl [Zofran] 4 mg tablet 4 mg PO Q6H PRN (Reason: nausea and vomiting) Qty: 5 RF: 0 Referrals: Robyn Raymundo DO [Primary Care Provider] -
[2019-04-18] MEDS: SODIUM CHLORIDE 0.9% 1,000 ML 1000 ML IV (20:45)
[2019-04-18 20:48] VITALS: BP 158/90; PULSE 68; RESP 18; O2SAT 99
[2019-04-18 20:52] LABS: Add Manual Diff / Slide Review NO; Basophils Absolute Auto 100 /uL (0-100); Basophils Percent Auto 0.7 % (0-2); Eosinophils Absolute Auto 100 /uL (0-450); Eosinophils Percent Auto 1.2 % (2-4); Hematocrit 35.4 % (41-53); Hemoglobin 12.4 g/dL (13.5-17.5); Lymphocytes Absolute Auto 1300 /uL (1100-4500); Lymphocytes Percent Auto 15.4 % (25-40); Mean Corpuscular HGB Conc 34.9 % (30-36); Mean Corpuscular Hemoglobin 31.2 PG (26-34); Mean Corpuscular Volume 89.4 fL (80-100); Monocytes Absolute Auto 600 /uL (0-900); Neutrophils Absolute Auto 6500 /uL (1500-7000); Neutrophils Percent Auto 75.7 % (50-75); Platelet Count 214 X10^3/uL (150-400); Red Blood Cell Count 3.96 X10^6/uL (4.5-5.9); Red Cell Distribution Width 13.9 % (11.6-14.8); White Blood Cell Count 8.5 X10^3/uL (4.5-11.0)
[2019-04-18 21:00] LABS: Alanine Aminotransferase 20 IU/L (<50); Albumin 3.7 g/dL (3.5-5.0); Albumin Globulin Ratio 1.4 (1.0-2.8); Alkaline Phosphatase 57 U/L (38-126); Aspartate Aminotransferase 27 IU/L (17-59); Bilirubin Total 0.3 mg/dL (0.2-1.3); Blood Urea Nitrogen 42 mg/dL (9-20); Calcium 9.3 mg/dL (8.4-10.2); Carbon Dioxide 26 mmol/L (22-32); Chloride 101 mmol/L (98-107); Estimated Glomerular Filt Rate 33.5 mL/min (>60); Globulin 2.7 g/dL (1.7-4.1); Glucose 98 mg/dL (80-110); HEMOLYSIS < 15 (0-50); Lipase 33 U/L (23-300); Potassium 4.4 mmol/L (3.4-5.1); Sodium 134 mmol/L (137-145); Total Protein 6.4 g/dL (6.3-8.2)
[2019-04-18 21:22] VITALS: BP 117/89; PULSE 68; RESP 19; O2SAT 100
[2019-04-18 21:50] VITALS: BP 180/88; PULSE 70; RESP 17; O2SAT 97
[2019-04-18] MEDS: ONDANSETRON 4 MG ODT PREPACK 1 BOTTLE MISC (21:53)
[2019-04-18] MEDS: ONDANSETRON 4 MG/2 ML INJ IV (21:57)
== END 2019-04-18 22:05 | disposition home or self-care (01) ==
PROVIDERS: Emergency Provider Emergency Medicine; PCP Family Medicine
DX: R11.0 Nausea (principal); R10.84 Generalized abdominal pain; D73.9 Disease of spleen, unspecified; N20.0 Calculus of kidney
CPT/HCPCS: 36415; 74160; 80053; 83690; 85025; 96374; 99284; J2405; Q9967

== ENCOUNTER → 2019-04-28 11:42 | Outpatient (CLI) | payer MEDICARE, OTHER, SELFPAY ==
[2019-05-02 13:57] LABS: Protein C Activity 193 % normal (70-180)
[2019-05-03 00:36] LABS: Protein C Antigen 106 % normal (70-140)
[2019-05-03 08:44] LABS: B2-Glycoprotein I IgA AB < 9 SAU (< OR = 20); B2-Glycoprotein I IgG AB < 9 SGU (< OR = 20); B2-Glycoprotein I IgM AB < 9 SMU (< OR = 20); Cardiolipin Ab IgA < 11 APL; Cardiolipin Ab IgG < 14 GPL; Cardiolipin Ab IgM < 12 MPL; Phos. Serine AB IgM < 25 U/mL
[2019-05-05 14:53] LABS: dRVVT Screen 30
== END ==
PROVIDERS: PCP Family Medicine; Visit Provider Family Medicine
DX: D73.5 Infarction of spleen (principal)
CPT/HCPCS: 36415; 81241; 85302; 85303; 85306; 85613; 86146; 86147; 86148

== ENCOUNTER → 2019-07-04 11:04 | Outpatient (CLI) | payer MEDICARE, OTHER, SELFPAY ==
[2019-07-04 12:13] LABS: BUN Creatinine Ratio 21.1 (6-22); Blood Urea Nitrogen 40 mg/dL (9-20); Calcium 9.3 mg/dL (8.4-10.2); Carbon Dioxide 24 mmol/L (22-32); Chloride 108 mmol/L (98-107); Estimated Glomerular Filt Rate 35.5 mL/min (>60); Glucose 118 mg/dL (80-110); HEMOLYSIS < 15 (0-50); Sodium 138 mmol/L (137-145)
[2019-07-04 12:17] LABS: Potassium 5.5 mmol/L (3.4-5.1)
[2019-07-04 16:41] LABS: Creatinine Urine Random 102.3 mg/dL
[2019-07-04 17:01] LABS: Protein (Total) Urine Random 324 mg/dL (0-12); Protein Creatinine Ratio Urine 3.16 GRAM/24H
== END ==
PROVIDERS: PCP Family Medicine; Referring Provider Student in an Organized Health Care Education/Training Program; Visit Provider Student in an Organized Health Care Education/Training Program
DX: N05.9 Unspecified nephritic syndrome with unspecified morphologic changes (principal); R80.9 Proteinuria, unspecified
CPT/HCPCS: 36415; 80048; 82570; 84156

== ENCOUNTER 2019-10-01 17:06 | Emergency (ER) | payer MEDICARE, OTHER, SELFPAY ==
[2019-10-01] VITALS (7 sets, daily range): BP systolic 139–240; BP diastolic 70–118; PULSE 74–88; RESP 16–22; TEMP 36.3; O2SAT 95–99
--- NOTE | 2019-10-01 17:25 | DI.RAD.S_ITS ---
PROCEDURE: XR CHEST 1V INDICATIONS: chest pain TECHNIQUE: One view of the chest was acquired. COMPARISON: [facility], , CHEST FOR PICC PLACEMENT, 01/28/2016, 8:12. FINDINGS: Surgical changes and devices: None. Lungs and pleura: Lungs are atelectatic at the right lung base, with chronic elevation of right hemidiaphragm. At the left lower lobe there is mild atelectasis also, but no definite pneumonia. No pleural effusions or pneumothorax. Mediastinum: Mediastinal contours appear normal. Heart size is at or just above the upper limits of normal. Bones and chest wall: No suspicious bony lesions. Overlying soft tissues appear unremarkable. IMPRESSION: Suspect cardiogenic source of chest pain. Rd size at or just above the upper limits of normal. Bibasilar atelectasis, chronic elevation of the right diaphragm. Dictated by: Matias Espitia M.D. on 10/01/2019 at 18:06 Approved by: Matias Espitia M.D. on 10/01/2019 at 18:07
[2019-10-01 17:41] LABS: Add Manual Diff / Slide Review NO; Basophils Absolute Auto 100 /uL (0-100); Basophils Percent Auto 1.1 % (0-2); Eosinophils Absolute Auto 100 /uL (0-450); Eosinophils Percent Auto 1.7 % (2-4); Hematocrit 30.8 % (41-53); Hemoglobin 10.5 g/dL (13.5-17.5); Lymphocytes Absolute Auto 1200 /uL (1100-4500); Lymphocytes Percent Auto 14.3 % (25-40); Mean Corpuscular HGB Conc 34.1 % (30-36); Mean Corpuscular Hemoglobin 31.5 PG (26-34); Mean Corpuscular Volume 92.3 fL (80-100); Monocytes Absolute Auto 600 /uL (0-900); Monocytes Percent Auto 6.9 % (3-14); Neutrophils Absolute Auto 6200 /uL (1500-7000); Platelet Count 240 X10^3/uL (150-400); Red Blood Cell Count 3.34 X10^6/uL (4.5-5.9); Red Cell Distribution Width 12.6 % (11.6-14.8); White Blood Cell Count 8.2 X10^3/uL (4.5-11.0)
--- NOTE | 2019-10-01 17:42 | ED_ITS ---
HPI - General Adult <Aubrey Eden MD - Last Filed: 10/02/19 07:25> General Chief complaint: Hypertension Stated complaint: BP way out of control Time Seen by Provider: 10/01/19 17:20 Source: patient Mode of arrival: Ambulatory History of Present Illness HPI narrative: CC: High blood pressure HPI: The patient is a 68-year-old male who has a history of hypertension for which he is on lisinopril 10 mg per day. The patient is a diabetic and takes glipizide 5 mg q.day. Yesterday he was scheduled for a resection of a mole and on evaluation had hypertension for which she was given blood pressure medicine. The mole was resected and bandage. Tonight the patient checked his blood pressure and his blood pressure was high so he checked that approximately 10 times and the blood pressure continued to go up. The patient denied having any change in vision loss of vision, retinal problems, macular degeneration. The patient is lives with sees an counter intelligence technician and gets injections in the back of his eye. He denies a history of optic neuritis. He has had no recent fall or injury. He has had no head injury or headache. He denies any chest pain cough shortness of breath difficulty in breathing. He admits to history of hypertension diabetes mellitus and high cholesterol for which she is on a statin. He does not smoke cigarettes does not drink alcohol or use any drugs. Related Data Home Medications Medication Instructions Recorded Confirmed multivitamin [Multiple Vitamins] 1 tab PO QDAY #0 01/22/17 10/01/19 lisinopril 10 mg PO QAM 10/01/19 10/01/19 oxycodone 5 mg PO Q6HR PRN 10/01/19 10/01/19 Previous Rx's Medication Instructions Recorded atorvastatin 40 mg tablet 40 mg PO QPM #90 tab 06/09/19 glipizide 5 mg tablet, extended 5 mg PO DAILY #90 tab 08/11/19 release 24 hr Allergies Allergy/AdvReac Type Severity Reaction Status Date / Time No Known Drug Allergies Allergy Verified 01/21/18 15:13 Review of Systems <Aubrey Eden MD - Last Filed: 10/02/19 07:25> Review of Systems Narrative: REVIEW OF SYSTEMS: CONSTITUTIONAL: No change in weight fever chills or sweats. NEUROLOGICAL: No headache numbness tingling paresthesias anesthesia is paresis or paralysis. EENT: No change in vision trouble swallowing. CARDIO-PULMONARY: No chest pain cough shortness of breath racing of the heart. HEMOTOLOGICAL: No bleeding or bruising GASTROINTESTINAL: No abdominal pain nausea vomiting diarrhea GENITAL URINARY: No urinary symptoms. MUSCULOSKELETAL/ RHEUMATOLOGICAL: No back pain. Patient History <Aubrey Eden MD - Last Filed: 10/02/19 07:25> Medical History Diabetes mellitus (Chronic) Diabetic peripheral neuropathy (Chronic) Diabetic retinopathy of both eyes associated with type 2 diabetes mellitus (12/01/16) Hyperlipidemia associated with type 2 diabetes mellitus (Acute) Hypertension (Chronic) Well controlled type 2 diabetes mellitus (Acute) Surgical History History of cataract removal with insertion of prosthetic lens (Resolved ~2016) Social History marital status: number of children: 2 lives independently: Yes education level: college occupational status: other (retired) Smoking Status: Never smoker alcohol intake: never substance use type: does not use Smoking Status: Never smoker Substance Use Type: does not use Exam <Aubrey Eden MD - Last Filed: 10/02/19 07:25> Narrative Exam Narrative: PHYSICAL EXAM: CONSTITUTIONAL: Awake, Alert, Oriented, Coherent, Cooperative in NAD. Does not appear anxious or toxic.. HEAD: AT/NC. The patient has a sutured in place bandage with Xeroform over his left posterior occiput where he has had a mole/melanoma removed at yesterday. EENT: PERRL, FROM of eyes, no discharge, no nystagmus NECK: Supple, no obvious JVD, Trachea is midline without stridor, no palpable LN. SPINE: Palpation of the cervical spine reveals no tenderness. THORAX: No deformity, retractions, chest wall tenderness. LUNGS: Clear, symmetrical breath sounds without respiratory distress. HEART: Normal heart tones, regular rhythm and rate without murmur. ABDOMEN: Soft, non-tender, normal bowel sounds without guarding, rebound, rigidity or palpable mass. EXTREMITIES: No edema, deformity, tenderness or cyanosis. NEURO: Awake, alert, oriented, conversive, cranial nerves II-XII are symmetrical , moves all 4 extremities and is ambulatory. Initial Vital Signs Initial Vital Signs: Vital Signs Temperature 97.4 F L 10/01/19 17:13 Pulse Rate 88 10/01/19 17:13 Respiratory Rate 22 10/01/19 17:13 Blood Pressure 240/118 H 10/01/19 17:13 Pulse Oximetry 96 10/01/19 17:13 <Nolan Ruiz DO - Last Filed: 10/01/19 18:39> Initial Vital Signs Initial Vital Signs: Vital Signs Temperature 97.4 F L 10/01/19 17:13 Pulse Rate 88 10/01/19 17:13 Respiratory Rate 22 10/01/19 17:13 Blood Pressure 240/118 H 10/01/19 17:13 Pulse Oximetry 96 10/01/19 17:13 Course <Aubrey Eden MD - Last Filed: 10/02/19 07:25> Course Course Narrative: 1742 The patient's EKG obtained at 17:2 4:39 a.m. reveals a sinus rhythm with a right bundle branch block pattern. His QRS is 142 milliseconds. OH interval is 190 milliseconds. QTC is 445 milliseconds. [place] is normal. The patient has nonspecific ST segment changes there are no acute diagnostic ST segment change chest ischemia or infarct. 175: The patient is being evaluated for asymptomatic hypertension. The patient is scheduled to see his primary care physician tomorrow. The patient was advised to check his blood pressure once and record the value. He was discouraged from checking it multiple times because his anxiety will cause his blood pressure to continue to rise and go up. He was advised to find out from his primary care physician where they want his blood pressure to be an to graft his diastolic and systolic blood pressures on graph paper so that he can see the trend. The patient was informed that despite being on blood pressure medicines his blood pressure will periodically still remain high depending on his emotional status and circumstances of his activities. The patient was advised that if he develops high blood pressure and develops headache, neurological symptoms, loss of vision, chest pain, shortness of breath abdominal pain he needs to be evaluated at that time. Orders Ordered: Discontinued Medications Hydralazine HCl (Apresoline) 10 mg IV NOW ONE Stop: 10/01/19 17:42 Last Admin: 10/01/19 17:50 Dose: 10 mg Documented by: KHOA Vital Signs Vital signs: Vital Signs - 8 hr 10/01/19 17:13 10/01/19 17:39 10/01/19 17:41 Temperature 97.4 F L Pulse Rate 88 74 Pulse Rate [Orthostatic Sitting] 74 Respiratory Rate 22 18 Blood Pressure 240/118 H Blood Pressure [Left Arm] 221/92 H Blood Pressure [Orthostatic Sitting] 221/92 H Blood Pressure [Right Arm] 231/106 H Pulse Oximetry 96 99 10/01/19 17:50 10/01/19 17:55 10/01/19 18:15 Temperature Pulse Rate 78 78 87 Pulse Rate [Orthostatic Sitting] Respiratory Rate 16 17 Blood Pressure 231/106 H Blood Pressure [Left Arm] 190/89 H Blood Pressure [Orthostatic Sitting] Blood Pressure [Right Arm] 139/97 H Pulse Oximetry 98 96 <Nolan Ruiz DO - Last Filed: 10/01/19 18:39> Course Course Narrative: Patient received in sign-out from Dr. Eden. A performed an independent history and physical exam. Patient remains asymptomatic. Labs are reviewed and unremarkable. Patient blood pressure now down in the 130s. He has a scheduled appointment with his PCP tomorrow morning at 10:30 a.m. return precautions given and questions answered to his apparent satisfaction Orders Ordered: Discontinued Medications Hydralazine HCl (Apresoline) 10 mg IV NOW ONE Stop: 10/01/19 17:42 Last Admin: 10/01/19 17:50 Dose: 10 mg Documented by: KHOA Vital Signs Vital signs: Vital Signs - 8 hr 10/01/19 17:13 10/01/19 17:39 10/01/19 17:41 Temperature 97.4 F L Pulse Rate 88 74 Pulse Rate [Orthostatic Sitting] 74 Respiratory Rate 22 18 Blood Pressure 240/118 H Blood Pressure [Left Arm] 221/92 H Blood Pressure [Orthostatic Sitting] 221/92 H Blood Pressure [Right Arm] 231/106 H Pulse Oximetry 96 99 10/01/19 17:50 10/01/19 17:55 10/01/19 18:15 Temperature Pulse Rate 78 78 87 Pulse Rate [Orthostatic Sitting] Respiratory Rate 16 17 Blood Pressure 231/106 H Blood Pressure [Left Arm] 190/89 H Blood Pressure [Orthostatic Sitting] Blood Pressure [Right Arm] 139/97 H Pulse Oximetry 98 96 Medical Decision Making <Aubrey Eden MD - Last Filed: 10/02/19 07:25> Lab Data Result diagrams: 10/01/19 17:34 10/01/19 Unknown Labs: Lab Results 10/01/19 10/01/19 10/01/19 Range/Units 17:34 Unknown Unknown WBC 8.2 (4.5-11.0) X10^3/uL RBC 3.34 L (4.5-5.9) X10^6/uL Hgb 10.5 L (13.5-17.5) g/dL Hct 30.8 L (41-53) % MCV 92.3 (80-100) fL MCH 31.5 (26-34) PG MCHC 34.1 (30-36) % RDW 12.6 (11.6-14.8) % Plt Count 240 (150-400) X10^3/uL Neut % (Auto) 76.0 H (50-75) % Lymph % (Auto) 14.3 L (25-40) % [place] % (Auto) 6.9 (3-14) % Eos % (Auto) 1.7 L (2-4) % Baso % (Auto) 1.1 (0-2) % Neut # (Auto) 6200 (8989-7171) /uL Lymph # (Auto) 1200 (1711-5035) /uL [place] # (Auto) 600 (0-900) /uL Eos # (Auto) 100 (0-450) /uL Baso # (Auto) 100 (0-100) /uL PT 11.1 (10.1-12.7) SECONDS INR 1.0 (0.9-1.3) APTT 32 (26.4-36.2) SECONDS Sodium 136 L (137-145) mmol/L Potassium 4.7 (3.4-5.1) mmol/L Chloride 107 (98-107) mmol/L Carbon Dioxide 21 L (22-32) mmol/L BUN 31 H (9-20) mg/dL Creatinine 2.42 H (0.66-1.25) mg/dL Estimated GFR 26.9 L (>60) mL/min BUN/Creatinine Ratio 12.8 (6-22) Glucose 152 H (80-110) mg/dL Calcium 8.9 (8.4-10.2) mg/dL Magnesium (1.6-2.3) mg/dL Total Bilirubin 0.2 (0.2-1.3) mg/dL AST 23 (17-59) IU/L ALT 10 (<50) IU/L Alkaline Phosphatase 90 (38-126) U/L Total Creatine Kinase (55-170) U/L CK-MB (CK-2) (<2.37) ng/mL CK-MB (CK-2) Rel Index (1.5-5.0) % Troponin I (0.01-0.034) ng/mL Total Protein 6.6 (6.3-8.2) g/dL Albumin 3.3 L (3.5-5.0) g/dL Globulin 3.3 (1.7-4.1) g/dL Albumin/Globulin Ratio 1.0 (1.0-2.8) Lipase (23-300) U/L / Range/Units Unknown WBC (4.5-11.0) X10^3/uL RBC (4.5-5.9) X10^6/uL Hgb (13.5-17.5) g/dL Hct (41-53) % MCV (80-100) fL MCH (26-34) PG MCHC (30-36) % RDW (11.6-14.8) % Plt Count (150-400) X10^3/uL Neut % (Auto) (50-75) % Lymph % (Auto) (25-40) % [place] % (Auto) (3-14) % Eos % (Auto) (2-4) % Baso % (Auto) (0-2) % Neut # (Auto) (5625-1520) /uL Lymph # (Auto) (4419-7447) /uL [place] # (Auto) (0-900) /uL Eos # (Auto) (0-450) /uL Baso # (Auto) (0-100) /uL PT (10.1-12.7) SECONDS INR (0.9-1.3) APTT (26.4-36.2) SECONDS Sodium (137-145) mmol/L Potassium (3.4-5.1) mmol/L Chloride (98-107) mmol/L Carbon Dioxide (22-32) mmol/L BUN (9-20) mg/dL Creatinine 2.41 H (0.66-1.25) mg/dL Estimated GFR 27.0 L (>60) mL/min BUN/Creatinine Ratio (6-22) Glucose (80-110) mg/dL Calcium (8.4-10.2) mg/dL Magnesium 1.9 (1.6-2.3) mg/dL Total Bilirubin (0.2-1.3) mg/dL AST (17-59) IU/L ALT (<50) IU/L Alkaline Phosphatase (38-126) U/L Total Creatine Kinase 316 H (55-170) U/L CK-MB (CK-2) 4.10 H (<2.37) ng/mL CK-MB (CK-2) Rel Index 1.3 L (1.5-5.0) % Troponin I < 0.012 (0.01-0.034) ng/mL Total Protein (6.3-8.2) g/dL Albumin (3.5-5.0) g/dL Globulin (1.7-4.1) g/dL Albumin/Globulin Ratio (1.0-2.8) Lipase 21 L (23-300) U/L <Nolan Ruiz, DO - Last Filed: 10/01/19 18:39> Lab Data Labs: Lab Results 10/01/19 10/01/19 10/01/19 Range/Units 17:34 Unknown Unknown WBC 8.2 (4.5-11.0) X10^3/uL RBC 3.34 L (4.5-5.9) X10^6/uL Hgb 10.5 L (13.5-17.5) g/dL Hct 30.8 L (41-53) % MCV 92.3 (80-100) fL MCH 31.5 (26-34) PG MCHC 34.1 (30-36) % RDW 12.6 (11.6-14.8) % Plt Count 240 (150-400) X10^3/uL Neut % (Auto) 76.0 H (50-75) % Lymph % (Auto) 14.3 L (25-40) % [place] % (Auto) 6.9 (3-14) % Eos % (Auto) 1.7 L (2-4) % Baso % (Auto) 1.1 (0-2) % Neut # (Auto) 6200 (7391-0231) /uL Lymph # (Auto) 1200 (3679-1752) /uL [place] # (Auto) 600 (0-900) /uL Eos # (Auto) 100 (0-450) /uL Baso # (Auto) 100 (0-100) /uL PT 11.1 (10.1-12.7) SECONDS INR 1.0 (0.9-1.3) APTT 32 (26.4-36.2) SECONDS Sodium 136 L (137-145) mmol/L Potassium 4.7 (3.4-5.1) mmol/L Chloride 107 (98-107) mmol/L Carbon Dioxide 21 L (22-32) mmol/L BUN 31 H (9-20) mg/dL Creatinine 2.42 H (0.66-1.25) mg/dL Estimated GFR 26.9 L (>60) mL/min BUN/Creatinine Ratio 12.8 (6-22) Glucose 152 H (80-110) mg/dL Calcium 8.9 (8.4-10.2) mg/dL Magnesium (1.6-2.3) mg/dL Total Bilirubin 0.2 (0.2-1.3) mg/dL AST 23 (17-59) IU/L ALT 10 (<50) IU/L Alkaline Phosphatase 90 (38-126) U/L Total Creatine Kinase (55-170) U/L CK-MB (CK-2) (<2.37) ng/mL CK-MB (CK-2) Rel Index (1.5-5.0) % Troponin I (0.01-0.034) ng/mL Total Protein 6.6 (6.3-8.2) g/dL Albumin 3.3 L (3.5-5.0) g/dL Globulin 3.3 (1.7-4.1) g/dL Albumin/Globulin Ratio 1.0 (1.0-2.8) Lipase (23-300) U/L 05/27/20 Range/Units Unknown WBC (4.5-11.0) X10^3/uL RBC (4.5-5.9) X10^6/uL Hgb (13.5-17.5) g/dL Hct (41-53) % MCV (80-100) fL MCH (26-34) PG MCHC (30-36) % RDW (11.6-14.8) % Plt Count (150-400) X10^3/uL Neut % (Auto) (50-75) % Lymph % (Auto) (25-40) % [place] % (Auto) (3-14) % Eos % (Auto) (2-4) % Baso % (Auto) (0-2) % Neut # (Auto) (2751-0218) /uL Lymph # (Auto) (1720-5789) /uL [place] # (Auto) (0-900) /uL Eos # (Auto) (0-450) /uL Baso # (Auto) (0-100) /uL PT (10.1-12.7) SECONDS INR (0.9-1.3) APTT (26.4-36.2) SECONDS Sodium (137-145) mmol/L Potassium (3.4-5.1) mmol/L Chloride (98-107) mmol/L Carbon Dioxide (22-32) mmol/L BUN (9-20) mg/dL Creatinine 2.41 H (0.66-1.25) mg/dL Estimated GFR 27.0 L (>60) mL/min BUN/Creatinine Ratio (6-22) Glucose (80-110) mg/dL Calcium (8.4-10.2) mg/dL Magnesium 1.9 (1.6-2.3) mg/dL Total Bilirubin (0.2-1.3) mg/dL AST (17-59) IU/L ALT (<50) IU/L Alkaline Phosphatase (38-126) U/L Total Creatine Kinase 316 H (55-170) U/L CK-MB (CK-2) 4.10 H (<2.37) ng/mL CK-MB (CK-2) Rel Index 1.3 L (1.5-5.0) % Troponin I < 0.012 (0.01-0.034) ng/mL Total Protein (6.3-8.2) g/dL Albumin (3.5-5.0) g/dL Globulin (1.7-4.1) g/dL Albumin/Globulin Ratio (1.0-2.8) Lipase 21 L (23-300) U/L Discharge Plan Departure Patient Disposition: Home Clinical Impression: Essential hypertension Discharge Date/Time: 10/01/19 18:44 Instructions: DI for High Blood Pressure Activity Restrictions/Additional Instructions: *You have been diagnosed with [essential hypertension] *What to do: *Take medications as directed: Increase your lisinopril from 10 mg to 20 mg daily *Follow up with your primary care provider in 2-3 days, call for an appointment. Let them know you were seen in the Emergency Department and that we ask that you be seen in follow up *Return to ER if you should have any new, worsening or concerning symptoms Prescriptions: No Action multivitamin [Multiple Vitamins] 1 EACH tablet 1 tab PO QDAY Qty: 0 RF: 0 atorvastatin 40 mg tablet 40 mg PO QPM Qty: 90 RF: 1 glipizide 5 mg tablet extended release 24hr 5 mg PO DAILY Qty: 90 RF: 1 lisinopril 10 mg tablet 10 mg PO QAM RF: 0 oxycodone 5 mg tablet 5 mg PO Q6HR PRN (Reason: Pain (Scale Score 7-10)) RF: 0 Referrals: Robyn Raymundo DO [Primary Care Provider] -
--- NOTE | 2019-10-01 17:48 | PC.NURSE ---
pt has vaseline gauze on his left posterior occiput from a melanoma removal yesterday at . no drainage noted. pt has vaseline gauze over his left neck that is clean and dry
[2019-10-01] MEDS: HYDRALAZINE 20 MG/ML VIAL 10 MG IV (17:50)
[2019-10-01 17:59] LABS: Prothrombin Time 11.1 SECONDS (10.1-12.7)
[2019-10-01 18:01] LABS: PTT Partial Thromboplastin Tim 32 SECONDS (26.4-36.2)
[2019-10-01 18:10] LABS: Alanine Aminotransferase 10 IU/L (<50); Albumin 3.3 g/dL (3.5-5.0); Alkaline Phosphatase 90 U/L (38-126); Aspartate Aminotransferase 23 IU/L (17-59); BUN Creatinine Ratio 12.8 (6-22); Bilirubin Total 0.2 mg/dL (0.2-1.3); Blood Urea Nitrogen 31 mg/dL (9-20); Calcium 8.9 mg/dL (8.4-10.2); Carbon Dioxide 21 mmol/L (22-32); Chloride 107 mmol/L (98-107); Creatine Kinase 316 U/L (55-170); Estimated Glomerular Filt Rate 26.9 mL/min (>60); Globulin 3.3 g/dL (1.7-4.1); Glucose 152 mg/dL (80-110); HEMOLYSIS < 15 (0-50); Lipase 21 U/L (23-300); Magnesium 1.9 mg/dL (1.6-2.3); Potassium 4.7 mmol/L (3.4-5.1); Sodium 136 mmol/L (137-145); Total Protein 6.6 g/dL (6.3-8.2)
[2019-10-01 18:21] LABS: Troponin I < 0.012 ng/mL (0.01-0.034)
[2019-10-01 18:25] LABS: CKMB % Relative Index 1.3 % (1.5-5.0)
== END 2019-10-01 18:44 | disposition home or self-care (01) ==
PROVIDERS: Emergency Medicine; Emergency Provider Emergency Medicine; PCP Family Medicine
DX: I10 Essential (primary) hypertension (principal); E11.9 Type 2 diabetes mellitus without complications; E78.5 Hyperlipidemia, unspecified
CPT/HCPCS: 36415; 71045; 80053; 82550; 82553; 82565; 83690; 83735; 84484; 85025; 85610; 85730; 93005; 93010; 96374; 99284; J0360

== ENCOUNTER → 2019-10-08 10:05 | Outpatient (CLI) | payer MEDICARE, OTHER, SELFPAY ==
[2019-10-08 11:37] LABS: Hemoglobin A1C% w Est Avg Glu 6.6 % (4.0-6.0)
[2019-10-08 11:56] LABS: Blood Urea Nitrogen 36 mg/dL (9-20); Calcium 8.9 mg/dL (8.4-10.2); Carbon Dioxide 25 mmol/L (22-32); Chloride 102 mmol/L (98-107); Estimated Glomerular Filt Rate 31.3 mL/min (>60); Glucose 133 mg/dL (80-110); HEMOLYSIS < 15 (0-50); Potassium 5.1 mmol/L (3.4-5.1); Sodium 134 mmol/L (137-145)
[2019-10-08 12:28] LABS: Protein (Total) Urine Random 668 mg/dL (0-12)
[2019-10-08 16:32] LABS: Creatinine Urine Random 93.2 mg/dL; Protein Creatinine Ratio Urine 7.16 GRAM/24H
== END ==
PROVIDERS: PCP Family Medicine; Referring Provider Student in an Organized Health Care Education/Training Program; Visit Provider Student in an Organized Health Care Education/Training Program
DX: R80.9 Proteinuria, unspecified (principal); N05.9 Unspecified nephritic syndrome with unspecified morphologic changes; E11.9 Type 2 diabetes mellitus without complications
CPT/HCPCS: 36415; 80048; 82570; 83036; 84156

== ENCOUNTER → 2019-10-14 11:54 | Outpatient (CLI) | payer MEDICARE, OTHER, SELFPAY ==
[2019-10-14 20:20] LABS: Hepatitis B Surface Antigen NEGATIVE s/c (NEGATIVE)
[2019-10-14 20:35] LABS: Hep C Virus Ab w/Reflex Quant REACTIVE s/c (NEGATIVE)
[2019-10-15 01:07] LABS: Hepatitis B Surf AB Quant <3.1 mIU/mL (Immunity>9.9)
[2019-10-15 02:40] LABS: Hepatitis B Core Antibody Negative (Negative)
[2019-10-15 04:36] LABS: Complement C3 129 mg/dL (82-167)
[2019-10-15 17:08] LABS: DNA (DS) Antibody <1 IU/mL (0-9)
[2019-10-15 21:07] LABS: ANA Screen, IFA Negative (.)
[2019-10-16 11:09] LABS: Immunoglobulin A, Serum 161 mg/dL (61-437); Immunoglobulin G,Serum 830 mg/dL (603-1613); Immunoglobulin M, Serum 51 mg/dL (20-172)
[2019-10-16 13:09] LABS: Cytoplasmic C-ANCA <1:20 titer (Neg:<1:20); Perinuclear P-ANCA <1:20 titer (Neg:<1:20)
[2019-10-16 15:11] LABS: Alpha-1-Globulin 0.2 g/dL (0.0-0.4); Alpha-2-Globulin 0.8 g/dL (0.4-1.0); Gamma Globulin 0.6 g/dL (0.4-1.8); Globulin Total 2.6 g/dL (2.2-3.9); Protein, Total 5.6 g/dL (6.0-8.5)
[2019-10-17 11:36] LABS: Alpha-1 Globulin, Ur 4.5 % (.); Beta Globulin, Ur 15.3 % (.); Gamma Globulin, Ur 11.7 % (.); M-Spike % 9.3 % (Not Observed); Urine Total Protein 469.5 mg/dL (Not Estab.)
[2019-11-16 14:09] LABS: Free Kappa Lt Chains, Serum 276.8
[2019-11-16 14:10] LABS: Free Lambda Lt Chains,Serum 32.3
== END ==
PROVIDERS: PCP Family Medicine; Referring Provider Student in an Organized Health Care Education/Training Program; Visit Provider Student in an Organized Health Care Education/Training Program
DX: L93.2 Other local lupus erythematosus (principal); M31.30 Wegener's granulomatosis without renal involvement; M32.10 Systemic lupus erythematosus, organ or system involvement unspecified; D89.89 Other specified disorders involving the immune mechanism, not elsewhere classified; B19.10 Unspecified viral hepatitis B without hepatic coma; R80.9 Proteinuria, unspecified; D47.2 Monoclonal gammopathy
CPT/HCPCS: 36415; 82784; 83516; 83883; 84155; 84156; 84165; 84166; 86038; 86160; 86225; 86334; 86335; 86704; 86706; 86803; 87340; 87522

== ENCOUNTER → 2019-12-16 13:15 | Outpatient (CLI) | payer MEDICARE, OTHER, SELFPAY ==
[2019-12-16 13:46] LABS: Hematocrit 32.3 % (41-53); Hemoglobin 10.7 g/dL (13.5-17.5)
[2019-12-16 14:09] LABS: BUN Creatinine Ratio 20.1 (6-22); Blood Urea Nitrogen 45 mg/dL (9-20); Carbon Dioxide 23 mmol/L (22-32); Chloride 107 mmol/L (98-107); Estimated Glomerular Filt Rate 29.3 mL/min (>60); Glucose 143 mg/dL (80-110); HEMOLYSIS < 15 (0-50); Potassium 5.1 mmol/L (3.4-5.1); Sodium 135 mmol/L (137-145)
[2019-12-16 15:39] LABS: Creatinine Urine Random 84.1 mg/dL
[2019-12-16 15:52] LABS: Protein (Total) Urine Random 414 mg/dL (0-12); Protein Creatinine Ratio Urine 4.92 GRAM/24H
[2019-12-17 07:12] LABS: Parathyroid Hormone Int 74 pg/mL (15-65)
== END ==
PROVIDERS: PCP Family Medicine; Referring Provider Student in an Organized Health Care Education/Training Program; Visit Provider Student in an Organized Health Care Education/Training Program
DX: R80.9 Proteinuria, unspecified (principal); N05.9 Unspecified nephritic syndrome with unspecified morphologic changes; D64.9 Anemia, unspecified; N25.81 Secondary hyperparathyroidism of renal origin
CPT/HCPCS: 36415; 80048; 82570; 83970; 84156; 85014; 85018

== ENCOUNTER 2020-01-05 17:41 | Emergency (ER) | payer MEDICARE, OTHER, SELFPAY ==
[2020-01-05] VITALS (11 sets, daily range): BP systolic 136–164; BP diastolic 63–86; PULSE 72–79; RESP 16–20; TEMP 36.7; O2SAT 96–99; BMI 34.2
--- NOTE | 2020-01-05 18:37 | ED_ITS ---
HPI - General Adult General Chief complaint: Abdominal Pain Stated complaint: Intense Stomach Pain Time Seen by Provider: 01/05/20 18:12 Source: patient Mode of arrival: Ambulatory Limitations: no limitations History of Present Illness HPI narrative: 69-year-old male here for evaluation of abdominal pain. Pain that brings him in today is not new for him. Has been going on for several months/years. He states that he has been seen multiple times for this in the past and has had ultrasounds and CT scans and he states that there has been little in the way of explanation for what is causing his symptoms. He is here in the emergency department with his daughter who agrees with this explanation. Patient's daughter states that the patient is never seen a GI doctor. It has been approximately 3 days since he has had a bowel movement but this is not unusual for him. She states that he gets intense pain. Occasionally takes reflux medicine like Nexium but this is not on a regular basis. He takes other uwrr-myh-buffahl medicines like [place]. Recently had a biopsy of his left kidney. Reports that the pain that he is having now he has had for the past couple days but it did intensify just recently. Related Data Home Medications Medication Instructions Recorded Confirmed multivitamin [Multiple Vitamins] 1 tab PO QDAY #0 01/22/17 10/02/19 lisinopril 10 mg PO QAM 10/01/19 10/02/19 oxycodone 5 mg PO Q6HR PRN 10/01/19 10/02/19 Previous Rx's Medication Instructions Recorded glipizide 5 mg tablet, extended 5 mg PO DAILY #90 tab 08/11/19 release 24 hr atorvastatin 40 mg tablet 40 mg PO QPM #30 tab 12/09/19 metoclopramide HCl [Reglan] 10 mg PO Q6H PRN #20 tab 01/05/20 Allergies Allergy/AdvReac Type Severity Reaction Status Date / Time No Known Drug Allergies Allergy Verified 01/05/20 17:46 Review of Systems Constitutional Constitutional: Denies fever(s) and Denies headache(s) ENT Ears, Nose, Mouth, and Throat: Denies headache(s) Cardiovascular Cardiovascular: Denies chest pain and Denies dyspnea Respiratory Respiratory: Denies dyspnea Gastrointestinal Gastrointestinal: Reports abdominal pain, Denies melena, Denies change in bowel habits, Reports nausea and Denies vomiting Genitourinary Genitourinary: Denies dysuria Genitourinary: Denies dysuria Musculoskeletal Musculoskeletal: Denies arthralgias and Denies myalgias Integumentary/Breasts Skin/Breast: Denies rash Neurologic Neurologic: Denies behavioral changes, Denies confusion and Denies headache(s) Psychiatric Psychiatric: Denies behavioral changes and Denies confusion Hematologic/Lymphatic Hematologic/Lymphatic: Denies easy bleeding and Denies easy bruising Allergic/Immunologic Allergic/Immunologic: Denies urticaria Patient History Medical History Diabetes mellitus (Chronic) Diabetic peripheral neuropathy (Chronic) Diabetic retinopathy of both eyes associated with type 2 diabetes mellitus (12/01/16) Hyperlipidemia associated with type 2 diabetes mellitus (Acute) Hypertension (Chronic) Melanoma (Acute) Well controlled type 2 diabetes mellitus (Acute) Surgical History History of cataract removal with insertion of prosthetic lens (Resolved ~2016) Social History marital status: number of children: 2 lives independently: Yes education level: college occupational status: other (retired) Smoking Status: Never smoker alcohol intake: never substance use type: does not use Smoking Status: Never smoker Substance Use Type: does not use Exam Initial Vital Signs Initial Vital Signs: Vital Signs Temperature 98.1 F 01/05/20 17:46 Pulse Rate 75 01/05/20 17:46 Respiratory Rate 16 01/05/20 17:46 Blood Pressure 145/80 H 01/05/20 17:46 Pulse Oximetry 98 01/05/20 17:46 Const General: cooperative, healthy appearing and well developed Limitations: mental status not altered [facility] Head: normal to inspection and normocephalic Resp Effort & Inspection: normal respiratory effort Auscultation: clear to auscultation bilaterally Cardio Rate: regular rate Rhythm: regular rhythm GI Inspection: non-distended Palpation: soft, No firm and tender (Generalized tenderness) Skin Lesions: no lesions Rashes: no rashes Neuro General: patient alert and patient awake Cognition: normal cognition Speech: speech normal Extrem General: normal to inspection and capillary refill normal Psych Appearance: grossly normal and well kempt Course Orders Ordered: Discontinued Medications Hydromorphone HCl (Dilaudid) 0.5 mg IV NOW ONE Stop: 01/05/20 20:04 Last Admin: 01/05/20 20:06 Dose: 0.5 mg Documented by: NIKKI Sodium Chloride (Normal Saline 0.9%) 1,000 mls @ 1,000 mls/hr IV BOLUS ONE Stop: 01/05/20 19:36 Last Infusion: 01/05/20 21:50 Dose: 0 mls/hr Documented by: Admin: 01/05/20 19:14 Dose: 1,000 mls/hr Documented by: ROBERT Metoclopramide HCl (Reglan) 10 mg IV NOW ONE Stop: 01/05/20 20:43 Last Admin: 01/05/20 20:53 Dose: 10 mg Documented by: NIKKI Morphine Sulfate (Morphine) 4 mg IV NOW ONE Stop: 01/05/20 18:38 Last Admin: 01/05/20 19:14 Dose: 4 mg Documented by: ROBERT Ondansetron HCl (Zofran) 4 mg IV NOW ONE Stop: 01/05/20 18:38 Last Admin: 01/05/20 19:13 Dose: 4 mg Documented by: ROBERT Pantoprazole Sodium (Protonix) 40 mg IV NOW ONE Stop: 01/05/20 18:38 Last Admin: 01/05/20 19:14 Dose: 40 mg Documented by: ROBERT Vital Signs Vital signs: Vital Signs - 8 hr 01/05/20 20:30 01/05/20 21:00 01/05/20 21:30 Pulse Rate 72 77 78 Blood Pressure 136/71 143/63 H 140/77 Pulse Oximetry 97 97 96 Medical Decision Making Medical Records Medical records reviewed: Yes I reviewed the patient's medical records. Lab Data Lab results reviewed: Yes I reviewed the patient's lab results. Result diagrams: 01/05/20 19:00 01/05/20 19:00 Labs: Lab Results 01/05/20 01/05/20 01/05/20 Range/Units 19:00 19:00 19:00 WBC 8.7 (4.5-11.0) X10^3/uL RBC 2.66 L (4.5-5.9) X10^6/uL Hgb 8.4 L (13.5-17.5) g/dL Hct 24.7 L (41-53) % MCV 92.6 (80-100) fL MCH 31.5 (26-34) PG MCHC 34.1 (30-36) % RDW 13.6 (11.6-14.8) % Plt Count 220 (150-400) X10^3/uL Neut % (Auto) 78.3 H (50-75) % Lymph % (Auto) 12.2 L (25-40) % [place] % (Auto) 8.6 (3-14) % Eos % (Auto) 0.3 L (2-4) % Baso % (Auto) 0.6 (0-2) % Neut # (Auto) 6800 (7693-4246) /uL Lymph # (Auto) 1100 (3893-1240) /uL [place] # (Auto) 700 (0-900) /uL Eos # (Auto) 0 (0-450) /uL Baso # (Auto) 100 (0-100) /uL Sodium 136 L (137-145) mmol/L Potassium 4.9 (3.4-5.1) mmol/L Chloride 108 H (98-107) mmol/L Carbon Dioxide 20 L (22-32) mmol/L BUN 41 H (9-20) mg/dL Creatinine 2.69 H (0.66-1.25) mg/dL Estimated GFR 23.7 L (>60) mL/min BUN/Creatinine Ratio 15.2 (6-22) Glucose 113 H (80-110) mg/dL Lactate 0.8 (0.7-2.1) mmol/L Calcium 8.7 (8.4-10.2) mg/dL Total Bilirubin 0.4 (0.2-1.3) mg/dL AST 28 (17-59) IU/L ALT 19 (<50) IU/L Alkaline Phosphatase 79 (38-126) U/L Total Protein 6.4 (6.3-8.2) g/dL Albumin 3.3 L (3.5-5.0) g/dL Globulin 3.1 (1.7-4.1) g/dL Albumin/Globulin Ratio 1.1 (1.0-2.8) Lipase 19 L (23-300) U/L Imaging Data CT scan - abdomen/pelvis: Radiologist's Impression: [address] [address] [address] Scan Report Signed Patient: Kevin Quesada FMR#: [id number] : 2Acct:[id number] Age/Sex: 69 / MDate of Service: 01/05/20 Loc: ED Accession Number: [id number] Procedure: CT abdomen pelvis wo con Ordering Provider: Rhett Kauffman D.O. PROCEDURE: CT ABDOMEN PELVIS WO CON INDICATIONS: Generalized abdominal pain TECHNIQUE: Noncontrast 5 mm thick sections acquired from the diaphragms to the symphysis. 5 mm coronal and sagittal reformats were then performed. For radiation dose reduction, the following was used: automated exposure control, adjustment of mA and/or kV according to patient size. COMPARISON: [facility], CT, CT ABDOMEN W CON, 04/18/2019, 10:55. FINDINGS: Image quality: Excellent. ABDOMEN: Lung bases: Small bilateral pleural effusions. Lung bases are otherwise clear. Heart size is normal. Solid organs: Liver is normal in size. Gallbladder is within normal limits . Pancreas is normal in contours. Spleen is normal in size. No adrenal nodules. There is a subcapsular high-density focus containing a small amount of gas at the posterolateral aspect of the left kidney measuring roughly 16 mm oblique transverse by 14 mm in thickness. Kidneys are normal in size, without hydronephrosis . Nonobstructing 2 mm calculus within the superior pole right kidney. Cortical calcification within the right superior pole kidney measuring 5 mm. Nonobstructing 3 mm calcification within the superior pole left kidney. Nonobstructing 3 mm calcification within the inferior pole left kidney. Peritoneum and bowel: Unenhanced bowel loops demonstrate normal wall thickness and caliber. No free fluid or air. Nodes and vessels: No retroperitoneal or mesenteric adenopathy by size criteria. Aorta and inferior vena cava are normal in caliber. Miscellaneous: No ventral hernias. PELVIS: Genitourinary: Bladder wall thickness is normal. Miscellaneous: No inguinal hernias or adenopathy. Bones: No suspicious bony lesions. No vertebral body compression fractures. IMPRESSION: 1. Left-sided subcapsular perirenal fluid collection containing small amount of gas, which has an appearance most suggestive of iatrogenic hemorrhage (i.e. Presumably from recent renal intervention). If there is no history of recent left renal procedure, findings may indicate spontaneous hemorrhage. The gas within the collection may indicate infection with a gas-forming organism. 2. Nonobstructing renal calcifications. 3. Appendix not seen. No evidence of appendicitis. Dictated by: Hardik Elena M.D. on 01/05/2020 at 20:00 Approved by: Hardik Elena M.D. on 01/05/2020 at 20:04 ECG Data Attestation: I personally reviewed and interpreted this ECG as follows: Prior ECG tracings: not available for review Interpretation: Sinus rhythm Ventricular rate is 75 Right bundle-branch block Nonspecific ST T wave changes MDM Narrative Medical decision making narrative: Patient does have abnormalities in his labs this team to be baseline for him. The finding on the CT scan is consistent with his stated history of a recent left kidney biopsy. Patient received a couple doses of pain medication without much relief. He was then given Reglan which seemed to improve his symptoms tremendously. Has not had a bowel movement in a couple days but this is not unusual for him. Has some suspicion that potentially patient some than similar to gastroparesis. Patient does have diabetes. Was on oral medications and then was switched insulin numbness now back on oral medications. Patient could also potentially have gastric ulcer. Had a discussion with him and his daughter regarding reflux disease. Feel that starting him on a daily PPI would be warranted. We discussed this. Formed tremendous reported that he takes in on a daily basis. Also informed her that it is important that he talk with his primary provider put the indications for referral to see Gastroenterology. Patient feels much better after Reglan. Will discharge home with return precautions. Patient and his daughter expressed understanding and agreement. Discharge Plan Departure Patient Disposition: Home Clinical Impression: Abdominal pain Discharge Date/Time: 01/05/20 21:51 Instructions: DI for Abdominal Pain-Adult Activity Restrictions/Additional Instructions: I recommend that you contact your primary provider tomorrow to discuss the indications for referral to see Gastroenterology. Return to the emergency department for any new or worsening symptoms. Also recommend that he start taking a medics said cold a proton pump inhibitor on a daily basis. These medicines can be purchased [id number]-mca-[id number]. Examples include Nexium. The generic version of these medications is appropriate. Prescriptions: New metoclopramide HCl [Reglan] 10 mg tablet 10 mg PO Q6H PRN (Reason: nausea and vomiting) Qty: 20 RF: 0 No Action multivitamin [Multiple Vitamins] 1 EACH tablet 1 tab PO QDAY Qty: 0 RF: 0 glipizide 5 mg tablet extended release 24hr 5 mg PO DAILY Qty: 90 RF: 1 atorvastatin 40 mg tablet 40 mg PO QPM Qty: 30 RF: 0 lisinopril 10 mg tablet 10 mg PO QAM RF: 0 oxycodone 5 mg tablet 5 mg PO Q6HR PRN (Reason: Pain (Scale Score 7-10)) RF: 0 Referrals: Robyn Raymundo DO [Primary Care Provider] -
[2020-01-05 19:08] LABS: Add Manual Diff / Slide Review NO; Basophils Absolute Auto 100 /uL (0-100); Basophils Percent Auto 0.6 % (0-2); Eosinophils Absolute Auto 0 /uL (0-450); Eosinophils Percent Auto 0.3 % (2-4); Hematocrit 24.7 % (41-53); Hemoglobin 8.4 g/dL (13.5-17.5); Lymphocytes Absolute Auto 1100 /uL (1100-4500); Lymphocytes Percent Auto 12.2 % (25-40); Mean Corpuscular HGB Conc 34.1 % (30-36); Mean Corpuscular Hemoglobin 31.5 PG (26-34); Mean Corpuscular Volume 92.6 fL (80-100); Monocytes Absolute Auto 700 /uL (0-900); Monocytes Percent Auto 8.6 % (3-14); Neutrophils Absolute Auto 6800 /uL (1500-7000); Neutrophils Percent Auto 78.3 % (50-75); Platelet Count 220 X10^3/uL (150-400); Red Blood Cell Count 2.66 X10^6/uL (4.5-5.9); Red Cell Distribution Width 13.6 % (11.6-14.8); White Blood Cell Count 8.7 X10^3/uL (4.5-11.0)
[2020-01-05] MEDS: ONDANSETRON 4 MG/2 ML INJ IV (19:13)
[2020-01-05] MEDS: MORPHINE 4 MG/ML INJ IV (19:14)
[2020-01-05] MEDS: PANTOPRAZOLE 40 MG VIAL IV (19:14)
[2020-01-05] MEDS: SODIUM CHLORIDE 0.9% 1,000 ML 1000 ML IV (19:14)
[2020-01-05 19:26] LABS: Alanine Aminotransferase 19 IU/L (<50); Albumin 3.3 g/dL (3.5-5.0); Albumin Globulin Ratio 1.1 (1.0-2.8); Alkaline Phosphatase 79 U/L (38-126); Aspartate Aminotransferase 28 IU/L (17-59); BUN Creatinine Ratio 15.2 (6-22); Bilirubin Total 0.4 mg/dL (0.2-1.3); Blood Urea Nitrogen 41 mg/dL (9-20); Calcium 8.7 mg/dL (8.4-10.2); Carbon Dioxide 20 mmol/L (22-32); Chloride 108 mmol/L (98-107); Estimated Glomerular Filt Rate 23.7 mL/min (>60); Globulin 3.1 g/dL (1.7-4.1); Glucose 113 mg/dL (80-110); HEMOLYSIS < 15 (0-50); Lactate (Lactic Acid) 0.8 mmol/L (0.7-2.1); Lipase 19 U/L (23-300); Potassium 4.9 mmol/L (3.4-5.1); Sodium 136 mmol/L (137-145); Total Protein 6.4 g/dL (6.3-8.2)
[2020-01-05] MEDS: HYDROMORPHONE 0.5 MG INJ IV (20:06)
[2020-01-05] MEDS: METOCLOPRAMIDE 10 MG/2 ML INJ IV (20:53)
== END 2020-01-05 21:51 | disposition home or self-care (01) ==
PROVIDERS: Emergency Provider Emergency Medicine; PCP Family Medicine
DX: R10.9 Unspecified abdominal pain (principal); R11.0 Nausea
CPT/HCPCS: 74176; 74177; 80053; 83605; 83690; 85025; 93005; 96361; 96374; 96375; 99284; C9113; J1170; J2270; J2405; J2765